=== PATIENT | female | born 1960 | race Caucasian/White ===

== ENCOUNTER → 2016-04-01 | Outpatient (CLI) | payer BC ==
[~2016-04-01] MED LIST: CONRAY-43 43% 50ML VIAL (Q9960) As Ordered ONE; LIDOCAINE 1% MDV 20ML VIAL As Ordered ONE; methylPREDNISolone SUSP 40 MG/ML (DEPO-medrol) VIAL (J1030) As Ordered ONE
--- NOTE | 2016-04-01 18:13 | REP ---
RIGHT HIP INJECTION: The procedure was performed under the direct supervision of Dr. Miles. The risks and benefits of the procedure were explained to the patient and informed consent was obtained. The right femoral neck was localized using fluoroscopic guidance. The skin was prepped and draped in a sterile fashion. 1% Lidocaine was used as a local anesthetic. Using fluoroscopic guidance a 22-gauge spinal needle was inserted and advanced to the femoral neck. The patient has a prior history of allergy to IV contrast therefore contrast was not used. 5 mL of a solution containing 3 mL of 1% Lidocaine and 2 mL of Depo-Medrol 40 mg was injected. The needle was then removed. The patient tolerated the procedure well and there were no immediate complications. 3 second of fluoroscopic time was utilized for this procedure. Reviewed by PLACIDO Ramirez 04/04/2016 05:09 PEdited and Signed by Parth Miles MD 04/04/2016 05:12 P
== END ==
LOC: M RADPRO 11:05
PROVIDERS: ATTEND Physician Assistant Surgical
DX: M25.551 Pain in right hip (principal); Z91.040 Latex allergy status
CPT/HCPCS: 20610; 77002; J1030; Q9960

== ENCOUNTER → 2016-04-21 | Outpatient (CLI) | payer BC ==
[~2016-04-21] MED LIST changes: -LIDOCAINE 1% MDV 20ML VIAL As Ordered ONE; -methylPREDNISolone SUSP 40 MG/ML (DEPO-medrol) VIAL (J1030) As Ordered ONE
--- NOTE | 2016-04-21 09:54 | REP ---
MR arthrogram right hip: History: Right hip pain. Question labral tear. Injury in 2014 and again in February 2016. Comparison studies: No comparison radiographs. Technique: Precontrast imaging includes coronal T1 and T2-weighted scans of both hips. Postcontrast small field of view high resolution axial, coronal and sagittal images are acquired in T1 and T2-weighted scans with fat saturation. MR arthrographic findings: Preinjection MR imaging shows that cortical and medullary bone signal intensity is normal in the proximal femurs bilaterally. There is no evidence of avascular necrosis. The visualized bony pelvic ring is intact. There is no evidence of significant hip joint effusion on either side. No juxta-articular bursal or other fluid collections are seen. Post injection MR imaging of the right hip with smaller field of view high resolution parameters shows good filling and enhancement of the right hip articulation. No loose body is seen. Ligamentum teres is intact. There is gadolinium enhancement under the anterior superior most edge of the cartilaginous glenoid labrum consistent with a subtle tear. The remainder of the labrum appears intact. Head/neck junction morphology is normal. Femoral head is smooth and rounded. No articular cartilage disruption is appreciated. Impression: Findings consistent with a subtle nondisplaced tear in the anterior superior edge of the acetabular labral cartilage. Signed by Parth Miles MD 04/21/2016 12:23 P
--- NOTE | 2016-04-21 16:47 | REP ---
RIGHT HIP ARTHROGRAM: The procedure was performed under the direct supervision of Dr. Miles. The benefits and risks including, but not limited to pain, infection, bleeding, and anaphylaxis were explained to the patient and informed consent was obtained. The right femoral neck was localized using fluoroscopic guidance. The skin was prepped and draped in a sterile fashion. 1% lidocaine was used as a local anesthetic. Using fluoroscopic guidance a 22-gauge spinal needle was inserted and advanced to the femoral neck. The patient has a prior history of Iodinated contrast allergy, therefore, contrast was not used. 11 mL of a solution containing 20 mL of sterile saline and 0.15 mL of ProHance was injected into the joint space. The needle was removed and the patient was taken to MRI for postprocedural imaging. The patient tolerated the procedure well and there were no immediate complications. 2 seconds of fluoroscopy time was utilized for this procedure. Reviewed by PLACIDO Ramirez 04/22/2016 03:29 PEdited and Signed by Parth Miles MD 04/22/2016 04:25 P
== END ==
LOC: M RADPRO 06:59
PROVIDERS: ATTEND Physician Assistant Surgical
DX: M24.151 Other articular cartilage disorders, right hip (principal); M25.551 Pain in right hip
CPT/HCPCS: 27093; 73723; 77002; A9576

== ENCOUNTER 2019-08-29 09:05 | Inpatient (IN) | payer BC, OTHER, SELFPAY ==
[~2019-08-29] VITALS: Ht 160 cm; Wt 58.7 kg
[2019-08-29] VITALS (11 sets, daily range): BP systolic 93–162; BP diastolic 56–74
[2019-08-29] MEDS: VITAMIN D 1,000 INTERNATIONAL UNITS TABLET PO SCH (09:00)
[~2019-08-29 09:05] MED LIST changes: -CONRAY-43 43% 50ML VIAL (Q9960) As Ordered ONE; +OMEPRAZOLE 20 MG CAP PO SCH; +POTASSIUM CHLORIDE 10 MEQ SR TABLET PO SCH
[2019-08-29] MEDS ORDERED: ALBUTEROL SULFATE 2.5 MG/0.5 ML INH NEB SOLN NEB PRN (12:00)
--- NOTE | 2019-08-29 12:07 | HPEPDOC ---
[facility] Medical History & Physical Date of Admission Aug 29, 2019 Date of Service: Aug 29, 2019 Attending Physician: Neida Boyle MD History and Physical CHIEF COMPLAINT: SOB, pericardial effusion HISTORY OF PRESENT ILLNESS: Patient is a 59-year-old female past history of fibromyalgia, abdominal adhesions with history of small bowel obstruction, history of Graves' disease status post radiation, GERD, hypothyroidism, connective tissue disease, carpal tunnel disease who presented to [facility] ICU after being transferred from [facility] for further treatment of pericardial effusion. As per the patient, prior to being admitted to the hospital she was just transferred from, she states her s all and so he 65. Ymtoms started one week 08/20/19 with chest pain in the AM, woke up from sleep. Chest pain was located on the left side/center of chest, squeezing, constant, 10/10 pain. Took ASA, tums but did not improve. Associated symptoms at that time were shortness of breath, nausea. Patient went to the ER at that time, trops were neg, ECG was wnl. CT at that time was done which was unremarkable and she was sent home from the ER only with levaquin for sinus infection with bronchitis. She said she felt better for three days but then developed increased weakness, fever of 101.3 at home. She called ER again and they prescribed azithromycin and albuterol inhaler. She stated that following Friday 08/25 she felt worse with fevers, weakness, nausea and went to the ER again. She was admitted for bilateral pneumonia on new CT scan. CT chest was repeated on 08/28/19 and found new pericardial effusion. Patient states that her shortness of breath has improved since her admission at [facility]. Weakness has improved. She is no longer nauseous, has no chest pain. She also complains of diarrhea of loose stools, small amount, nonbloody, 3x/day, started on 08/28/19. She feels it had started after her antibiotics were started her prior hospital stay. Denies sick contacts that she knows of, no recent travel, palpitations, coughing. Today she was sent to our ICU due to pericardial effusion, continued fevers (102.2). In the ICU patient was 90% on 15 L NRB, she was AAOx3. Labs were reviewed from transfer facility but needed to be repeated. Repeat CT chest without contrast showed b/l consolidations, moderate b/l pleural effusions, moderate pericardial effusion measuring 19 mm width. Thoracic surgery was consulted and patient went for pericardial window where 150 cc pericardial fluid was drained, opaque in color. Path from pericardium was sent, pericardial fluid sent for cx. Pleural tube placed. On window, her heart was adherent to pericardium. Thoracic surgery was concerned for viral pericarditis as cause. She was started on colchicine and currently post-operative procedure. Extubation is being attempted. PAST MEDICAL HISTORY: 1. Bilateral community acquired pneumonia/? HCAP since recent admission and worsening symptoms 2. pericardial effusion 3. Tobacco use 4. Fibromyalgia 5. Hypothyroidism 6. Abdominal adhesions 7. Hx of small bowel obstructions 8. GERD 9. Devine's esophagus 10 Grave's disease s/p radioactive therapy 11. Carpal tunnel disease PAST SURGICAL HISTORY: 1. Total hysterectomy SOCIAL HISTORY: Smoker 1 PPD 42 years, cigarettes. Social alcohol use, denies illicit drug use. Lives with significant other in local area. HCP- Preston Cunningham, nephew. Full code. FAMILY HISTORY: Father: AAA, at 65 Mother: Emphysema, at 82 y/o HOME MEDICATIONS: Please see below. PHYSICAL EXAMINATION: CONSTITUTIONAL: Sitting up in bed, mild respiratory distress, AAO x 3 EYES: PERRLA, EOM intact HENT, MOUTH: Normocephalic, atraumatic, moist mucous membranes, nonrebreather in place NECK: SUPPLE, no JVD, no lymphadenopathy, no carotid bruit CV: Regular rate and rhythm, S1S2 normal, no murmurs/rubs/gallops RESPIRATORY: Tachypnea, decreased breath sounds bilaterally , no rales/rhonchi/wheezes GI: BS positive in 4 quadrants, soft, nontender, nondistended, no rebound or guarding, no organomegaly : Deferred MUSCULOSKELETAL: Normal ROM. No cyanosis, clubbing, swelling, joint deformity, extremity edema INTEGUMENTARY: Intact, no rashes, no lesions, no erythema NEUROLOGIC: Cranial Nerves II-XII are intact, no focal deficits PSYCHIATRIC: Mood and affect are normal LABORATORY DATA: Please see below IMAGING: CT chest: 1. Bilateral consolidations and patchy air space disease along with presumed reactive adenopathy. 2. Moderate bilateral pleural effusions along with moderate pericardial effusion measuring 19 mm maximal width. 3. Differential diagnosis includes pneumonia and changes related to cardiomyopathy. ASSESSMENT: 59-year-old female admitted to ICU for acute hypoxic respiratory failure secondary to bilateral pneumonia, pericardial effusion status post pericardial window. PLAN: 1. Acute on chronic hypoxic respiratory failure likely multifactorial to viral pericarditis, ? CHF, bilateral pneumonia (community vs. HCAP). Not on home O2, tobacco use history but not on home O2. Please see below or treatment of individual issues. 2. Bilateral pneumonia, community vs. HCA with sepsis. Currently 15 L NRB. RR and WBC elevated. LA neg, worsening SOB. Difficult to say if patient didn't pick something up during recent hospital stay. Starting on Levofloxacin, Vancomycin and cefepime. MRSA ordered. F/u prior hospital's microbiology results (requesting BCx, sputum cx,UA) but also repeating BCx, sputum cx here. Acapella Q2 hrs while awake, duoneb ATC, albuterol PRN. . Pulmonary consulted. 3. Pericardial effusion likely 2/2 viral pericarditis. S/p pericardial window, 150 cc fluid drained. Pleural tube in place, monitor closely. F/u all culture and fluid GS, BCx. Started on colchicine. Thoracic surgery following. 4. Elevated BNP, r/o CHF. Bilateral pleural effusions on CT, elevated BNP of 1231, trop neg. No prior cardiac history. F/u echocardiogram. Consider adding lasix, BB when patient is seen to be stable after extubation. 5. Transaminitis possibly 2/2 to congestive hepatopathy vs. medication induced. F/u AM CMP, avoid hepatotoxic medications. 6. Hypothyroidism. F/u TSH. C/w home med. 7. Fibromyalgia. Stable. C/w home medications. 8. GERD/hx of Devine's esophagus. PPI. 9. DVT px. Enoxaparin daily. DISPOSITION: If patient cannot be extubated successfully, can transition all necessary meds to IV form. Pulmonary and thoracic surgery following closely. TOTAL CRITICAL CARE TIME SPENT ON PATIENT: >70 mins Home Medications Scheduled Cholecalciferol (Vitamin D3) (Vitamin D3) 1,000 Unit Tablet, 2,000 UNITS PO DAILY Duloxetine Hcl (Duloxetine HCl) 20 Mg Capsule.dr, 20 MG PO BID Esomeprazole Magnesium (Esomeprazole Magnesium Dr) 40 Mg Capsule.dr, 40 MG PO DAILY Estrogens, Conjugated (Premarin) 0.9 Mg Tablet, 0.9 MG PO DAILY Levothyroxine Sodium (Levothyroxine Sodium) 112 Mcg Tablet, 112 MCG PO DAILY Meropenem (Meropenem) 1 Gm Vial, 1 GM IV ASDIRECTED STARTED AT [facility] Methylprednisolone (Solu-Medrol 125 mg Vial) 125 Mg/2 Ml Vial, 125 MG INJ ASDIRECTED RECEIVED AT [facility] Multivitamins (Thera M Plus Tablet) 1 Each Tablet, 1 TAB PO DAILY Potassium Chloride (Potassium Chloride) 10 Meq Tablet.er, 10 MEQ PO DAILY Pregabalin (Pregabalin) 75 Mg Capsule, 75 MG PO BID Vitamin B Complex (Vitamin B Complex) 1 Each Tablet, 1 TAB PO DAILY Scheduled PRN Acetaminophen (Acetaminophen) 325 Mg Tablet, 975 MG PO QID PRN for PAIN / FEVER Albuterol Sulfate (Albuterol Sulfate Hfa) 8.5 Gm Hfa.aer.ad, 2 PUFFS INH QID PRN for SHORTNESS OF BREATH Ipratropium/Albuterol Sulfate (Iprat-Albut 0.5-3(2.5) mg/3 ml) 3 Ml Ampul.neb, 3 ML INH QID PRN for SHORTNESS OF BREATH Lidocaine (Lidocaine) 5% Adh..patch, 3 PATCH TOP DAILY PRN for PAIN RIGHT HIP, FRONT RIGHT LEG Nitroglycerin (Nitroglycerin) 0.4 Mg Tab.subl, 0.4 MG SL NITRO PRN for CHEST PAIN Allergies Coded Allergies: Iodinated Contrast Media (Verified Allergy, Severe, CONVULSIONS, 08/29/19) latex (Verified Allergy, Severe, SKIN IRRITATION, DIFFICULTY BREATHING, 08/29/19) naproxen (Verified Allergy, Severe, HIVES/ANAPHYLAXIS, 08/29/19) Penicillins (Verified Allergy, Intermediate, HIVES AND FEVER, 08/29/19) SEAFOOD (Verified Allergy, Unknown, 08/29/19) TAPE (Verified Allergy, Unknown, 08/29/19) bee venom protein (honey bee) (Verified Allergy, Unknown, 08/29/19) A-FIB/CHADSVASC A-FIB History Current/History of A-Fib/PAF?: No Current PO Anticoag Therapy: No Age/Risk Factor Scoring CHADSVASC: CHADSVASC Response (Comments) Value Age Risk Factor Age < 65 years old 0 Gender Risk Factor Female 1 Hx of CHF No 0 Hx of HTN No 0 Hx of Stroke/TIA/or VTE No 0 Hx of Diabetes No 0 Hx of Vascular Disease No 0 Total 1 Treatment Treatment ordered: Other (enoxaparin) Other anticoagulant ordered: enoxaparin Neida Boyle MD Aug 29, 2019 12:07
[2019-08-29] MEDS ORDERED: PREM0.9T PO (12:32)
[2019-08-29] MEDS ORDERED: LEVO112T2 PO (12:32)
[2019-08-29] MEDS ORDERED: NITR0.4S14 SL (12:32)
[2019-08-29] MEDS ORDERED: IPRA0.00 INH (12:32)
[2019-08-29] MEDS ORDERED: DULO1CAP4 PO (12:32)
[2019-08-29] MEDS ORDERED: PREG75CA2 PO (12:32)
[2019-08-29] MEDS ORDERED: ESOM40CA35 PO (12:32)
[2019-08-29] MEDS ORDERED: ALBU8.5H INH (12:32)
[2019-08-29] MEDS ORDERED: POTA1TAB23 PO (12:32)
[2019-08-29] MEDS ORDERED: LIDO1PAD TOP (12:32)
[2019-08-29] MEDS ORDERED: VITMTA PO (12:35)
[2019-08-29] MEDS ORDERED: VITAD1000T PO (12:35)
[2019-08-29] MEDS ORDERED: EQL50TAB2 PO (12:35)
[2019-08-29] MEDS ORDERED: METH125VL INJ (13:01)
[2019-08-29] MEDS ORDERED: MERO1VIA3 IV (13:01)
[2019-08-29] MEDS ORDERED: ACET1TAB55 PO (13:01)
[2019-08-29] MEDS ORDERED: LIDOCAINE 5% (LIDODERM) PATCH TOP PRN (13:15)
[2019-08-29] MEDS ORDERED: flumazeniL 0.5 MG/5 ML VIAL As Ordered ONE (13:55)
[2019-08-29] MEDS ORDERED: MIDAZOLAM INJ 2MG/2ML VIAL (J2250 PER 1MG) As Ordered ONE ×4 (13:55→15:05)
[2019-08-29] MEDS ORDERED: LIDOCAINE 1% MDV 20ML VIAL As Ordered ONE (13:56)
[2019-08-29] MEDS ORDERED: methylPREDNISolone INJ 125 MG/2 ML VIAL (J2930) IV SCH (14:00)
[2019-08-29] MEDS ORDERED: HEPARIN SOD (PORCINE) 5000UNITS/ML VIAL (J1644 PER 1000UNITS) SQ SCH (14:00)
--- NOTE | 2019-08-29 14:12 | REP ---
Clinical: Pneumonia like symptoms. Technique: Axial noncontrast images from the thoracic inlet to the upper abdomen with coronal and sagittal re-formations. Findings: Moderate perihilar consolidations with air bronchograms extend into the left lower lobe, right lower lobe, right middle lobe and lingula along with patchy scattered bilateral alveolar infiltrates involving the upper lobes as well as right middle and bilateral lower lobes. Moderate pleural effusions and moderate pericardial effusion which measures roughly 19 mm maximal width are also identified along with presumed reactive mediastinal and hilar adenopathy. No pneumothorax. Tracheobronchial tree is relatively patent. Osseous structures are intact without obvious focal abnormality. Impression: 1. Bilateral consolidations and patchy air space disease along with presumed reactive adenopathy. 2. Moderate bilateral pleural effusions along with moderate pericardial effusion measuring 19 mm maximal width. 3. Differential diagnosis includes pneumonia and changes related to cardiomyopathy. Electronically Signed by Joni Langley MD 08/29/2019 02:04 P
[2019-08-29] MEDS ORDERED: NS 1,000 ML IV ONE (14:15)
[2019-08-29 14:22] LABS: HEMATOCRIT 35.1 % (36.0-47.0); HEMOGLOBIN 11.8 g/dl (12.0-15.5); MEAN CORPUSCULAR HEMOGLOBIN 30.2 pg (27.0-33.0); MEAN CORPUSCULAR HGB CONC 33.6 g/dl (32.0-36.5); MEAN CORPUSCULAR VOLUME 89.8 fl (80.0-96.0); PLATELET COUNT, AUTOMATED 338 10^3/uL (150-450); RED BLOOD COUNT 3.91 10^6/uL (4.00-5.40)
[2019-08-29 14:32] LABS: INR 1.08; PROTHROMBIN TIME 13.7 SECONDS (11.8-14.0)
[2019-08-29 14:33] LABS: PARTIAL THROMBOPLASTIN TIME 33.8 SECONDS (25.0-38.4)
[2019-08-29] MEDS ORDERED: fentaNYL 250 MCG/5 ML INJECTION (J3010) As Ordered ONE (14:35)
[2019-08-29] MEDS ORDERED: LIDOCAINE 2% 100MG/5ML SDV (FOR ANES.) As Ordered ONE ×2 (14:36→14:55)
[2019-08-29] MEDS ORDERED: BUPIVACAINE HCL 0.5% 10ML VIAL As Ordered ONE (14:36)
[2019-08-29] MEDS ORDERED: propofoL 200 MG/20 ML VIAL As Ordered ONE (14:36)
[2019-08-29] MEDS ORDERED: ROCURONIUM BROMIDE 50 MG/5 ML VIAL As Ordered ONE ×2 (14:36→15:45)
[2019-08-29] MEDS ORDERED: BUPIVACAINE LIPOSOME/PF 1.3% 20ML VIAL (13.3MG/ML)(EXPAREL)(C9290 PER1MG) As Ordered ONE (14:36)
[2019-08-29] MEDS ORDERED: KETAMINE HCL 200 MG/20 ML VIAL As Ordered ONE (14:40)
[2019-08-29] MEDS ORDERED: ONDANSETRON 4MG/2ML VIAL As Ordered ONE (14:41)
[2019-08-29] MEDS ORDERED: dexameTHASONE 4 MG/ML 1ML VIAL (J1100 PER 1MG) As Ordered ONE (14:41)
[2019-08-29 14:49] LABS: ALBUMIN 2.9 GM/DL (3.2-5.2); ALT/SGPT 134 U/L (12-78); BILIRUBIN,TOTAL 0.3 MG/DL (0.2-1.0); BLOOD UREA NITROGEN 10 MG/DL (7-18); CALCIUM LEVEL 8.4 MG/DL (8.8-10.2); CARBON DIOXIDE LEVEL 25 MEQ/L (21-32); CHLORIDE LEVEL 105 MEQ/L (98-107); CREATININE FOR GFR 0.53 MG/DL (0.55-1.30); GLOMERULAR FILTRATION RATE > 60.0 (>45); GLUCOSE, FASTING 129 MG/DL (70-100); NT-PRO BNP 1231 PG/ML (<125); POTASSIUM SERUM 3.7 MEQ/L (3.5-5.1); SODIUM LEVEL 139 MEQ/L (136-145); TOTAL PROTEIN 6.9 GM/DL (6.4-8.2); TROPONIN I < 0.02 NG/ML (< 0.10)
[2019-08-29] MEDS ORDERED: VANCOMYCIN 1000MG/20ML VIAL As Ordered ONE (14:51)
[2019-08-29] MEDS ORDERED: MUPIROCIN 2% OINT 22 GM TUBE As Ordered ONE (14:51)
[2019-08-29] MEDS ORDERED: HYDROmorphone HCL 2 MG/ML 1ML VIAL (J1170) As Ordered ONE (15:25)
[2019-08-29] MEDS ORDERED: SUGAMMADEX SODIUM 500 MG/5 ML VIAL (BRIDION) As Ordered ONE (15:44)
--- NOTE | 2019-08-29 15:45 | CR ---
DATE OF CONSULTATION: 08/29/2019 The patient is seen at the request of Dr. Gillette and the hospitalist service for shortness of breath and a pericardial effusion. HISTORY OF PRESENT ILLNESS: The patient is a 59-year-old white female whose story starts approximately 9 days ago. At that time, she went to bed at night feeling well and then about 5:30 in the morning awoke with sudden shortness of breath and crushing pressure type chest pain. She presented herself to the [facility], who did a rule out myocardial infarction workup, which is all negative. They thought that she had a sinus infection and placed her on Levaquin. She felt better for 3 days and then started to become short of breath. The shortness of breath has continued to get worse and worse until she was admitted 2 days ago at [facility]. She continued to have shortness of breath such that she could not lay flat. Her chest pain continues and is relieved by sitting up. It is located in the middle of her chest. Notably, she feels that she can hear bubble wrap in the middle of her chest. She had a fever of 101.3 a few days prior to admission at [facility]. There was no rigor. She has maintained her weight. She has not had a cough, nor has she had sputum production. A chest CT was obtained at [facility] last night, which showed her to have a pericardial effusion and she was therefore transferred down here. PAST MEDICAL HISTORY: 1. Hypothyroidism, secondary to radioactive thyroid ablation, secondary to prior hyperthyroidism. 2. Fibromyalgia. 3. Gastroesophageal reflux disease (GERD). 4. History of small bowel obstructions. PAST SURGICAL HISTORY: She has had multiple abdominal surgeries for lysis of adhesions. She also has had a hysterectomy, tonsillectomy, and a cholecystectomy in the remote past. She has had rotator cuff repairs. ALLERGIES: CONTRAST MEDIA, PENICILLIN, SEAFOOD, LATEX, and NAPROXEN. MEDICATIONS AT HOME: - albuterol two puffs four times a day as needed, shortness of breath - duloxetine 20 mg twice a day - esomeprazole 40 mg every day - Premarin 0.9 mg every day - ipratropium albuterol neb 3 mL four times a day as needed, shortness of breath - Synthroid 112 mcg every day - meropenem (started at [facility]) - methylprednisolone (started at [facility]) - nitroglycerin (started at [facility]) - potassium 10 mg every day - pregabalin 75 mg by mouth twice a day - vitamin B one tablet every day HABITS: Smokes one pack of cigarettes per day since the age of 17. Rarely imbibes alcohol. There are no illicit drugs. 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 All her tuberculosis (TB) tests have been negative. TRAVEL HISTORY: She has traveled to [facility], [place], [place], and [facility].. No travel to the [facility]. EXPOSURES: She has three cats at home. No dogs or birds. FAMILY HISTORY: Not pertinent to acute situation. REVIEW OF SYSTEMS: Constitutional: See history of present illness (HPI). Eyes: Without diplopia. Without amaurosis fugax or prior jaundice. Does wear reading glasses. Nose: Only has occasional epistaxis secondary to the drying effects of oxygen these last few days. Mouth: Has her own teeth. Respiratory: See HPI. Cardiac: See HPI. Without intermittent claudication. She has noted peripheral edema these past 24 hours. No prior history of myocardial infarction. Gastrointestinal (GI): She has had occasional nausea in the last few days. No vomiting. No diarrhea, constipation, melena, hematochezia. No hematemesis. Denies abdominal pain. Genitourinary (): Without dysuria, hematuria, or prior history of renal stones. Endocrine: Without diabetes. With the above thyroid disease. Neurologic: Without paresthesias, paralysis, or prior seizures. Psychiatric: Depression being treated. PHYSICAL EXAMINATION: Well-developed, well-nourished white female in no moderate distress with shortness of breath, having difficulty lying down. Vital Signs: Temperature is 97.4, pulse of 86 in a sinus rhythm, respiratory rate of 26 with the use of her neck accessory muscles. She is 98% saturated on 15 liters nonbreather and her blood pressure is 126/65. Eyes: Pupils equal, round, and reactive. Sclerae nonicteric. Extraocular motor intact. Nose: Without deformity. Mouth: Shows her mucous membranes to be pink and moist. Lips and commissures without lesions. Her teeth are in good repair. Head: Is normocephalic. Neck: Is supple. There is no jugular venous distention. No subcutaneous emphysema. Lungs: Show normal vesicular sounds on either side. I hear no wheezes, rhonchi, or rales. Percussion note is full to the diaphragm. Cardiac: Exam shows distant heart sounds. I do not hear a pericardial rub. Without murmurs or clicks. S1 and S2 are normal. Abdomen: Soft, nontender. Bowel sounds are positive. There is no hepatomegaly. No costovertebral angle (CVA) tenderness. Extremities: Show 1+ pretibial edema. No calf tenderness. No differential swelling of the upper extremities. Skin: Is warm, dry, but has mottling on the knees. Neurologic: Shows II-XII intact along with gross motor and gross sensation intact. Gait is not tested. Psychiatric: Shows her to be awake and alert, oriented times three with appropriate mood and affect, and conversational. Her white count is 14.0 with hemoglobin and hematocrit of 11.8 and 35.1, with a platelet count of 338. Chemistries are still pending as are her coagulation functions. She is COVID negative. Her chest CT done just now shows a concentric pericardial effusion with sparse distribution anteriorly, increased distribution posteriorly. She has bilateral pleural effusions with bilateral lung compression. Her echocardiogram shows the same with regard to pericardial effusion. Inferior vena cava (IVC) does not change with inspiration and is noncompressible. IMPRESSION: 1. Pericardial tamponade. 2. Possible viral pericarditis. 3. Gastroesophageal reflux disease. 4. Fibromyalgia. 5. Prior tobacco use. 6. History of small bowel obstructions, status post multiple operations for abdominal adhesions. PLAN/DISCUSSION: It looks as though she is going into tamponade. I do not have enough room to do a percutaneous paracentesis and therefore, we will take her to operating room to do a pericardial window, at which time, we will take a piece of pericardium and sample the pericardial fluid. I will drain the right pleural effusion. Although, I suspect that once the pericardial effusion is taken care of pleural effusion will resolve of their own. I do not think that her bilateral lower lobe lung compression represents infiltrate but rather compression.
[2019-08-29] MEDS ORDERED: IPRATROPIUM 0.5MG/ALBUTEROL 2.5MG INH SOL UD 3ML (DUONEB) NEB SCH (16:00)
[2019-08-29] MEDS ORDERED: KCL 20MEQ IN D5/NS 1000ML 1,000 ML IV SCH (16:25)
[2019-08-29] MEDS ORDERED: ONDANSETRON 4MG/2ML VIAL IV PRN ×2 (16:30→18:45)
[2019-08-29] MEDS ORDERED: PERCOCET 5MG/325MG TAB PO PRN ×2 (16:30→18:45)
[2019-08-29] MEDS ORDERED: BISACODYL 10 MG SUPP PR PRN (16:30)
[2019-08-29] MEDS ORDERED: NORCO, ANEXSIA 5/325MG TABLET (HYDROcodone/ACETAMINOPHEN) PO PRN (16:30)
[2019-08-29] MEDS ORDERED: LEVALBUTEROL 1.25 MG/0.5 ML CONCENTRATE NEB NEB PRN (16:30)
[2019-08-29] MEDS ORDERED: FUROSEMIDE 40MG/4ML VIAL (J1940) As Ordered ONE (16:49)
[2019-08-29] MEDS ORDERED: FUROSEMIDE 40MG/4ML VIAL (J1940) IV ONE (17:00)
[2019-08-29] MEDS: COLCHICINE 0.6 MG TAB PO SCH (17:10)
[2019-08-29] MEDS ORDERED: DIGOXIN INJ 0.5 MG/2 ML AMP (J1160) As Ordered ONE (17:36)
[2019-08-29 17:38] LABS: ABG BASE EXCESS -0.7 (-2.0-2.0); ABG HCO3 24.6 MEQ/L (22.0-26.0); ABG O2 SATURATION 87.7 % (95.0-99.0); ABG PARTIAL PRESSURE CO2 43.1 mmHg (35.0-45.0); ABG PARTIAL PRESSURE O2 56.8 mmHg (75.0-100.0); ABG STANDARD HCO3 23.7 MEQ/L (22.0-26.0); ABG pH (ARTERIAL) 7.375 UNITS (7.350-7.450)
[2019-08-29] MEDS ORDERED: DIGOXIN INJ 0.5 MG/2 ML AMP (J1160) IV ONE (18:00)
[2019-08-29 18:27] LABS: PH BODY FLUID 7.683 UNITS (NOT ESTABLISHED); SOURCE, BODY FLUID pH PLEURAL
[2019-08-29 18:31] LABS: SOURCE, BODY FLUID PLEURAL
[2019-08-29 18:31] LABS: BASO % 0.1 % (0.0-1.0); HEMATOCRIT 35.5 % (36.0-47.0); HEMOGLOBIN 12.2 g/dl (12.0-15.5); LYMPH # 0.9 10^3/uL (1.5-5.0); LYMPH % 6.3 % (24.0-44.0); MEAN CORPUSCULAR HEMOGLOBIN 31.2 pg (27.0-33.0); MEAN CORPUSCULAR HGB CONC 34.4 g/dl (32.0-36.5); MEAN CORPUSCULAR VOLUME 90.8 fl (80.0-96.0); MONO # 0.7 10^3/uL (0.0-0.8); NEUTROPHILS # 12.9 10^3/uL (1.5-8.5); PLATELET COUNT, AUTOMATED 335 10^3/uL (150-450); RED BLOOD COUNT 3.91 10^6/uL (4.00-5.40); WHITE BLOOD COUNT 14.7 10^3/uL (4.0-10.0)
[2019-08-29 18:32] LABS: APPEARANCE, BODY FLUID CLOUDY (CLEAR); PLEURAL FL COLOR AMBER (COLORLESS)
[2019-08-29] MEDS ORDERED: KCL 20MEQ IN D5/0.9%NACL 1000 ML As Ordered ONE (18:32)
[2019-08-29 18:33] LABS: APPEARANCE, BODY FLUID TURBID (CLEAR); SOURCE, BODY FLUID PERICARDIAL; SOURCE, BODY FLUID pH PERICARDIAL
[2019-08-29 18:34] LABS: PH BODY FLUID > 7.800 UNITS (NOT ESTABLISHED)
[2019-08-29 18:35] LABS: SPEC. GRAVITY BODY FLUIDS 1.034 (NOT ESTABLISHED)
--- NOTE | 2019-08-29 18:35 | RO ---
DATE OF PROCEDURE: 08/29/2019 PREPROCEDURE DIAGNOSIS: Pericardial effusion, pericardial tamponade. POSTPROCEDURE DIAGNOSIS: Pericardial effusion, pericardial tamponade. PROCEDURE: Pericardial window, distal sternectomy and xiphoidectomy. SURGEON: Blair Prakash MD MOLD MAKER HELPER: ANESTHESIA: FINDINGS: The heart was diffusely adherent to the pericardium. I was able to carefully dissect a tunnel into the posterior pericardium where I placed a chest tube. The heart was drained of 175 mL of cloudy fluid. The pleura was drained of 150 mL, but I suspect that there is more and that was also drained with a chest tube. A piece of pericardium was taken and sent for pathological examination. Fluid was sent for the requisite chemistries, hematologies, cytologies, and bacteriologies. Both pleural and pericardial fluid were sent separately. DESCRIPTION OF PROCEDURE: The patient was brought to the operating room where an arterial line was placed. She had an [id number] mm paradox. She was, therefore, prepped and draped prior to induction. She was then induced, and an endotracheal tube was placed. She tolerated induction well. A midline subxiphoid incision was made and linea alba found and divided in its midline. Bifid xiphoid was removed as was a portion of the distal sternum so as to be able to place the Rultract retractor. A fairly large sternal vein was encountered, which was eventually controlled by use of electrocautery. The sternum was elevated, and the pericardium was exposed. A small incision was made in the pericardium and pleural fluid was collected for specimens. Pericardial incision was carefully extended as the heart was adherent beneath it. By both careful sharp and blunt dissection, the section could be placed into the posterior pericardium. I did not dissect the anterior pericardium as it was diffusely adherent to the underlying myocardium and epicardium. The pleura was found and a further piece of pericardium was removed to create a window. Two chest tubes were placed, one in the pericardial well, one in the pleura, both right angle #24 chest tubes. The incisions were closed with running #0 Vicryl suture for the linea alba, running #3-0 Vicryl suture for the subcutaneous tissue, running #3-0 Monocryl subcuticular suture for the skin. The patient tolerated the procedure well and left the operating room in satisfactory condition for the recovery room.
[2019-08-29] MEDS ORDERED: METOCLOPRAMIDE INJ 10MG/2ML VIAL (J2765 PER 1) IV PRN (18:45)
[2019-08-29] MEDS ORDERED: MEPERIDINE INJ 25 MG/ML VIAL (J2175) IV PRN (18:45)
[2019-08-29] MEDS ORDERED: LR 1,000 ML IV SCH (18:45)
[2019-08-29] MEDS ORDERED: fentaNYL 100 MCG/2 ML INJECTION (J3010) IV PRN (18:45)
[2019-08-29 18:56] LABS: LDH, BODY FLUID 570 U/L (NOT ESTABLISHED); SOURCE, BODY FLUID ALBUMIN PERICARDIAL; SOURCE, BODY FLUID GLUCOSE PERICARDIAL; SOURCE, BODY FLUID LDH PERICARDIAL; SOURCE, BODY FLUID TOT PROTEIN PERICARDIAL; TOTAL PROTEIN, BODY FLUID 5.5 G/DL (NOT ESTABLISHED)
[2019-08-29 19:00] LABS: BLOOD UREA NITROGEN 11 MG/DL (7-18); CALCIUM LEVEL 8.2 MG/DL (8.8-10.2); CARBON DIOXIDE LEVEL 27 MEQ/L (21-32); CHLORIDE LEVEL 104 MEQ/L (98-107); CREATININE FOR GFR 0.53 MG/DL (0.55-1.30); GLOMERULAR FILTRATION RATE > 60.0 (>45); GLUCOSE, FASTING 141 MG/DL (70-100); POTASSIUM SERUM 3.8 MEQ/L (3.5-5.1); SODIUM LEVEL 137 MEQ/L (136-145)
[2019-08-29 19:04] LABS: AMYLASE, BODY FLUID 15 U/L (NOT ESTABLISHED); LDH, BODY FLUID 196 U/L (NOT ESTABLISHED); SOURCE, BODY FLUID AMYLASE PLEURAL; SOURCE, BODY FLUID GLUCOSE PLEURAL; SOURCE, BODY FLUID LDH PLEURAL; SOURCE, BODY FLUID TOT PROTEIN PLEURAL; TOTAL PROTEIN, BODY FLUID 3.1 G/DL (NOT ESTABLISHED)
--- NOTE | 2019-08-29 19:45 | ECGEPIP ---
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
--- NOTE | 2019-08-29 19:50 | ECGEPIP ---
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
[2019-08-29] MEDS ORDERED: METOPROLOL SUCC *XL* 25MG TAB (TopROL *XL*) PO ONE (20:00)
[2019-08-29] MEDS: LEVALBUTEROL 1.25 MG/0.5 ML CONCENTRATE NEB NEB SCH (20:00)
--- NOTE | 2019-08-29 20:25 | CCN ---
DATE: 08/29/2019 CRITICAL CARE CONSULT Critical care time was 45 minutes; this excludes all procedures. I was called emergently by Dr. Boyle for the possibility of a patient having pericardial effusion. Echocardiogram had not been yet performed. However, there was a CT scan from yesterday at [facility] showing a fairly large pericardial effusion with some evidence of RV compression on the chest CT. On my arrival to the patient's room, the patient was sitting upright, forward, could not lay back. Her story starts approximately 9 days ago when she woke out of sleep with a pain in her chest and a feeling of increased shortness of breath. 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 She presented to the emergency room, and she stated that they did a workup for acute coronary syndrome, which was unremarkable. They thought she may have had a sinus infection and placed her on a fluoroquinolone. She states she actually felt better for a few days after this, but then progressively became short of breath. She then was admitted 2 days ago to [facility] and shortness of breath continued to worsen. She was having significant orthopnea to the point she could only sit forward to relieve her chest pain and discomfort. She then became more and more hypoxic as her hospitalization continued. She was on antibiotic therapy as there was a thought she likely had pneumonia because of the presence of bilateral pleural effusions on chest imaging. She was febrile to 103 a few days ago. Currently she denies any fever. No rigors. Prior to this, had not noticed any new medical issues. She denies any significant cough, no sputum production. She has had no hemoptysis. She denies any weight loss. At bedside, urgent echocardiogram was performed showing tamponade physiology. I have alerted Dr. Prakash on the way to see this patient, and he was also presented at bedside. It was determined to take her emergently to the operating room (OR) for pericardial window. PAST MEDICAL HISTORY: Significant for hypothyroidism, fibromyalgia, gastroesophageal reflux disease (GERD), recurrent bowel obstruction. Multiple surgical history is outlined in admission history and physical. PHYSICAL EXAM: Temperature was 97.4, pulse is 92, respiratory rate was 26, clear respiratory distress, tachypnea. Blood pressure was 153/66, mean arterial pressure of 95. I did perform peripheral blood cuff monitoring measurement of blood pressure. The systolic blood pressure did not change with respirations. There was no evidence of pulsus paradoxus. Oxygen saturation was 94% on a 15-liter non-rebreather. HEENT: Sclerae are clear and anicteric. Pupils equal and reactive to light. Mucous membranes are pink and moist. There is no central cyanosis. Neck is supple. No tracheal deviation or mass. There is elevated jugular venous distension. Lymph: No cervical, supraclavicular, or axillary adenopathy. Cardiac: Distant heart sounds. No audible murmur, rub or gallop. Sinus tachycardia. Pulmonary: Normal without rales, rhonchi or wheezes. Very minimal dullness to percussion at the bases. No wheeze. No rhonchi. No rales. Minimal prolongation of the expiratory phase. Abdomen: Soft, nontender, nondistended. No hepatosplenomegaly. No masses or hernia. Extremities: Minimal pretibial edema. No calf tenderness. Musculoskeletal: Fairly normal muscle tone for stated age. No evidence of fracture or joint effusion. Skin is warm with no rashes, jaundice or bruising. Minimal livedo reticularis over the knees. Neurologic: No unilateral weakness. No tremor. No asterixis. Voice is clear, non-tangential. Laboratory evaluation shows white blood cell count of 14.0, hemoglobin 11.8, hematocrit of 35.1 with a platelet count of 338. Sodium is 139, potassium is 3.7, chloride is 105, bicarbonate is 25, BUN of 10, creatinine of 0.53, fasting glucose of 129, lactic acid is 1.3, calcium is 8.4, AST is elevated at 65, ALT elevated at 134, alkaline phosphatase at 186. BNP is elevated at 1231. Albumin is at 2.9. INR is 1.08. Chest CT shows mild to moderate bilateral pleural effusions with moderate pericardial effusion. Minimal patchy airspace disease and likely reactive lymphadenopathy. Some ground glass abnormalities in the anterior portions of the lung and atelectasis at the bases.. IMPRESSION: 1. Hypoxia, undetermined etiology with minimal bilateral pleural effusions. May have viral pneumonia in conjunction with a severe pericardial effusion with tamponade features on echocardiogram. Has already been taken to the OR by the thoracic surgeon urgently for pericardial window. Possible decreased cardiac output because of tamponade. Will need to be monitored closely for the exact cause of hypoxia and may require further workup and testing depending on how she appears after surgery. This was signed out to my partner, Dr. Ruggiero. Any further workup right now is limited as she is in the OR. She will need to be reassessed at the time of returning back to the intensive care unit (ICU). Overall, the presentation is that this is likely a viral pericarditis due to the rapid onset in her symptoms. Therefore, will monitor for arrhythmia on telemetry. Avoid QTc prolonging medications. ZONIA
--- NOTE | 2019-08-29 20:28 | REPVR ---
PROCEDURE INFORMATION: Exam: US Duplex Lower Extremity Veins, Bilateral Exam date and time: 08/29/2019 8:17 PM Age: 59 years old Clinical indication: Pain; Leg, lower; Bilateral; Additional info: Le edema, hypoxia TECHNIQUE: Imaging protocol: Real-time duplex ultrasound of the extremities with 2-D malcolm scale, color Doppler flow and spectral waveform analysis with image documentation. Complete exam focused on the bilateral lower extremity veins. COMPARISON: No relevant prior studies available. FINDINGS: Right deep veins: Unremarkable. The common femoral, femoral, proximal profunda femoral and popliteal veins are patent without thrombus. Normal Doppler waveforms. Normal compressibility and/or augmentation response. Right superficial veins: Saphenofemoral junction is patent without thrombus. Left deep veins: Unremarkable. The common femoral, femoral, proximal profunda femoral and popliteal veins are patent without thrombus. Normal Doppler waveforms. Normal compressibility and/or augmentation response. Left superficial veins: Saphenofemoral junction is patent without thrombus. Soft tissues: Unremarkable. IMPRESSION: No DVT of bilateral lower extremity veins. Electronically signed by: Luis A Jacob On 08/29/2019 20:28:28 PM
[2019-08-29] MEDS: **NOTE PATIENT COMMENT** MISC XX SCH (21:00)
[2019-08-29] MEDS: LevoFLOXacin IV 750 MG in IV 1 EA IV SCH (21:07)
[2019-08-29] MEDS: DULoxetine 20 MG CAP (CYMBALTA) PO SCH (21:08)
[2019-08-29] MEDS: DOCUSATE SODIUM 100 MG CAP PO SCH (21:08)
[2019-08-29] MEDS: PREGABALIN 75 MG CAP(LYRICA) PO SCH (21:08)
[2019-08-29] MEDS: ACETAMINOPHEN TAB 650MG DOSE (2X325MG) PO PRN (22:16)
[2019-08-29] MEDS: CEFEPIME HCL 2 GM in D5W MINI-BAG PLUS 50 ML IV SCH (23:34)
--- NOTE | 2019-08-29 23:45 | ECHO ---
DATE OF PROCEDURE: 08/29/2019 DATE OF : 1960 AGE: 59 REFERRING PHYSICIAN: Dr. Boyle. PATIENT LOCATION: Room 3203. REASON FOR THE STUDY: Pericardial effusion. 2D MEASUREMENTS: IVS: 0.8 cm LV: 4.2 cm LVPW: 0.9 cm LA: 2.9 cm Aorta: 2.8 cm IVC: 2.0 cm DOPPLER MEASUREMENTS: Peak velocity across the aortic valve: 1.7 meters per second Peak velocity across the LVOT: 0.9 meters per second Mitral E: 0.89, Mitral A: 0.63 with a ratio of 1.4 2D COMMENTS: 1. Normal left ventricular size, wall thickness, and normal global left ventricular systolic function. The estimated left ventricular systolic ejection fraction is 60-65%. 2. Normal left atrium. Normal right atrium and right ventricle. 3. The atrial septum appeared to be normal without evidence of defect or shunt. 4. Normal aortic root. 5. Moderate pericardial effusion noted without any chamber collapse, but there was a greater than 25% mitral inflow variation with inspiration. The inferior vena cava (IVC) is borderline enlarged. 6. Mildly calcified aortic valve with normal leaflet excursion. Normal mitral valve, tricuspid valve and pulmonic valve. The proximal pulmonary artery branches were not well visualized. 7. The inferior vena cava was dilated, central venous pressure might be elevated. DOPPLER: It detects trace to mild mitral regurgitation and trace tricuspid regurgitation. Abnormal relaxation pattern was noted across the mitral valve annulus consistent with features of grade 2 left ventricular diastolic dysfunction. IMPRESSION: 1. Normal global left ventricular systolic function. There are some features of left ventricular diastolic dysfunction, grade 2. 2. Aortic valve sclerosis without stenosis or aortic regurgitation. 3. Trace to mild mitral regurgitation. Left atrium is normal in size. 4. Trace pericardial effusion. 5. Moderate pericardial effusion noted with some echocardiographic manifestation of early tamponade. It seems that the patient was taken to the operating room (OR) earlier in the day. 6. Bilateral pleural effusion also noted.
[2019-08-30] VITALS (7 sets, daily range): BP systolic 106–118; BP diastolic 56–79
[2019-08-30] MEDS ORDERED: VANCOMYCIN HCL 750 MG, VIAL MATE ADAPTER 1 EACH in D5W 250 ML IV ONE (01:00)
[2019-08-30] MEDS ORDERED: FUROSEMIDE 20MG/2ML VIAL (J1940) IV ONE (01:30)
[2019-08-30] MEDS: LEVALBUTEROL 1.25 MG/0.5 ML CONCENTRATE NEB NEB SCH ×4 (01:38→19:35)
[2019-08-30] MEDS ORDERED: VANCOMYCIN HCL 500 MG in D5W MINI-BAG PLUS 100 ML IV ONE (02:00)
[2019-08-30] MEDS ORDERED: DIGOXIN INJ 0.5 MG/2 ML AMP (J1160) IV ONE ×2 (02:00→10:00)
[2019-08-30 05:00] LABS: BASO % 0.1 % (0.0-1.0); HEMATOCRIT 37.5 % (36.0-47.0); HEMOGLOBIN 12.8 g/dl (12.0-15.5); LYMPH # 1.5 10^3/uL (1.5-5.0); LYMPH % 8.5 % (24.0-44.0); MEAN CORPUSCULAR HEMOGLOBIN 30.9 pg (27.0-33.0); MEAN CORPUSCULAR HGB CONC 34.1 g/dl (32.0-36.5); MEAN CORPUSCULAR VOLUME 90.6 fl (80.0-96.0); MONO # 1.2 10^3/uL (0.0-0.8); MONO % 7.2 % (0.0-5.0); NEUTROPHILS # 14.5 10^3/uL (1.5-8.5); NEUTROPHILS % 83.7 % (36.0-66.0); PLATELET COUNT, AUTOMATED 387 10^3/uL (150-450); RED BLOOD COUNT 4.14 10^6/uL (4.00-5.40); WHITE BLOOD COUNT 17.3 10^3/uL (4.0-10.0)
[2019-08-30 05:31] LABS: BLOOD UREA NITROGEN 13 MG/DL (7-18); CALCIUM LEVEL 8.2 MG/DL (8.8-10.2); CARBON DIOXIDE LEVEL 31 MEQ/L (21-32); CHLORIDE LEVEL 98 MEQ/L (98-107); CREATININE FOR GFR 0.73 MG/DL (0.55-1.30); GLOMERULAR FILTRATION RATE > 60.0 (>45); GLUCOSE, FASTING 120 MG/DL (70-100); POTASSIUM SERUM 3.9 MEQ/L (3.5-5.1); SODIUM LEVEL 139 MEQ/L (136-145); THYROID STIMULATING HORMONE 0.687 uIU/ML (0.358-3.740)
[2019-08-30 06:04] LABS: ABG BASE EXCESS 4.3 (-2.0-2.0); ABG O2 SATURATION 95.8 % (95.0-99.0); ABG PARTIAL PRESSURE CO2 38.5 mmHg (35.0-45.0); ABG PARTIAL PRESSURE O2 76.4 mmHg (75.0-100.0); ABG STANDARD HCO3 28.3 MEQ/L (22.0-26.0); ABG TOTAL CO2 29.2 MEQ/L (23.0-31.0)
[2019-08-30] MEDS: LEVOTHYROXINE 112MCG TABLET (0.112MG) PO SCH (06:31)
--- NOTE | 2019-08-30 06:32 | REP ---
Clinical: Pleural and pericardial effusions. Technique: Single portable upright view of the chest. Findings: A right-sided chest tube and suspected pericardial drainage catheter are identified. A moderate left pleural effusion is suggested and a small residual layering right pleural effusion cannot be excluded. Perihilar, bibasilar, and right upper lobe opacities suggest elements of atelectasis/infiltrate. No pneumothorax. Skeletal structures intact. Impression: 1. Right chest tube and pericardial drainage catheter. 2. Moderate left pleural effusion, small residual right pleural effusion, and multifocal infiltrate/atelectasis noted. Electronically Signed by Joni Langley MD 08/30/2019 06:24 A
[2019-08-30 07:45] LABS: LDH LACTATE DEHYDROGENASE 399 U/L (84-246)
[2019-08-30] MEDS ORDERED: MORPHINE 2 MG/ML 1ML VIAL (J2270) As Ordered ONE (08:40)
[2019-08-30] MEDS ORDERED: FUROSEMIDE 40MG/4ML VIAL (J1940) IV ONE (08:45)
[2019-08-30] MEDS ORDERED: MORPHINE 2 MG/ML 1ML VIAL (J2270) IV ONE (08:45)
[2019-08-30 08:56] LABS: ALBUMIN 2.8 GM/DL (3.2-5.2); ALT/SGPT 134 U/L (12-78); BILIRUBIN,TOTAL 0.3 MG/DL (0.2-1.0); RHEUMATOID FACTOR QUANT < 10.0 IU/ML (<15.0); TOTAL PROTEIN 6.8 GM/DL (6.4-8.2)
[2019-08-30] MEDS: PERCOCET 5MG/325MG TAB PO PRN ×2 (09:31→16:27)
--- NOTE | 2019-08-30 09:54 | REP ---
CHEST X-RAY: Two views. HISTORY: Pericardial and pleural effusion. COMPARISON CHEST X-RAY: August 29 2027 4:53 p.m. FINDINGS: The right chest tube remains in place projecting along the plane of the major fissure terminating posteriorly. There is a small right apical pneumothorax visible on today's radiograph. There is blunting of the right lateral and both posterior pleural angles. The left lateral pleural angle is also blunted consistent with left effusion. Monitoring electrodes are seen. A pericardial catheter is noted along the base of the heart unchanged in position. There are surgical clips in the upper abdomen. IMPRESSION: Small bilateral pleural effusions. A small right-sided pneumothorax with right chest and pericardial drainage catheters in place. Electronically Signed by Parth Miles MD 08/30/2019 12:47 P
[2019-08-30] MEDS: VANCOMYCIN HCL 1,000 MG, VIAL MATE ADAPTER 1 EACH in D5W 250 ML IV SCH ×2 (10:23→20:54)
[2019-08-30] MEDS: VITAMIN D 1,000 INTERNATIONAL UNITS TABLET PO SCH (10:26)
[2019-08-30] MEDS: PANTOPRAZOLE 40MG TAB (PROTONIX) PO SCH (10:27)
[2019-08-30] MEDS: MULTIVITAMINS/MINERALS THERAP 1 TAB PO SCH (10:27)
[2019-08-30] MEDS: DULoxetine 20 MG CAP (CYMBALTA) PO SCH ×2 (10:27→20:53)
[2019-08-30] MEDS: POTASSIUM CHLORIDE 10 MEQ SR TABLET PO SCH ×2 (10:28→18:11)
[2019-08-30] MEDS: COLCHICINE 0.6 MG TAB PO SCH (10:28)
[2019-08-30] MEDS: DOCUSATE SODIUM 100 MG CAP PO SCH ×2 (10:28→20:53)
[2019-08-30] MEDS: METOPROLOL SUCC *XL* 25MG TAB (TopROL *XL*) PO SCH ×2 (10:29→20:56)
[2019-08-30] MEDS: PREGABALIN 75 MG CAP(LYRICA) PO SCH ×2 (10:30→20:53)
[2019-08-30] MEDS: MOM 30ML SUSPENSION UDC PO SCH (10:30)
[2019-08-30] MEDS: ENOXAPARIN 40MG/0.4ML SYRINGE (J1650 PER 10MG) SC SCH (10:31)
[2019-08-30] MEDS: NICOTINE 14 MG/24 HR TRANSDERMAL TD SCH (10:31)
--- NOTE | 2019-08-30 11:14 | IPN ---
DATE: 08/30/2019 This is the first postoperative day for Mrs. Gallagher. She had a stable night of surgery. She is still hypoxic but is now down to 10 just nasal cannula from 15 nasal cannula. The pain was well-controlled until she went to x-ray today and when she lifted her arms over her head, she experienced excruciating right scapular pain. This is being treated with morphine with good relief. Her vital signs show a maximum temperature (T-max) of 98.5 with a heart rate that ranges between 112 and 104 now in atrial fibrillation. Her heart rate was up to 140s, just after surgery. Blood pressure is ranging between 109/56 to 93/56. She is 96% saturated now on 10 liters nasal cannula. Her respiratory rate is at 14-24 without the use of accessory muscles. Her intake and output over the past 24 hours has been recorded as 3030 in and 2848 out for a positivity of 182 mL. In the last 10 hours, she is now negative 1200 mL. She has put out a total of 133 mL from her pleural tube and 86 mL from her pericardial tube. She weighs 61 kg today compared to 62.2 kg yesterday. On physical examination she has decreased breath sounds at the left base. Percussion note is dull at the left base. She has normal vesicular sounds on the right side. Percussion note is full to the diaphragm on the right side. Cardiac exam shows a pericardial friction rub heard best at the left lower sternal border. I cannot feel her point of maximum impulse (PMI). S1 and S2 are normal. She has an irregular rate and rhythm. Abdomen is soft but tympanitic. Bowel sounds are positive. I cannot appreciate hepatomegaly. There is costovertebral angle (CVA) tenderness on the right most likely secondary to her pain in her scapula. Her right scapula is also tender to palpation. Extremities show 1+ pretibial edema. No differential swelling of the upper extremities. Skin is now warm, dry and perfused and unlike yesterday, there is no mottling of her knees. Neck is supple. There is no jugular venous distention. No subcutaneous emphysema. Trachea is midline. Mouth shows her mucous membranes to be pink and moist. Lips and commissures are without lesions. There is no thrush. Eyes show her pupils to be equal and reactive. Extraocular movements intact. Sclerae nonicteric. Neurologic shows II-XII intact along with gross motor and gross sensation intact. Gait is not tested. Psychiatric showed her to be awake, alert and oriented times three with appropriate and affect and conversational. Her white count today is 17.3 up from 14.7 yesterday postoperatively. Hemoglobin and hematocrit 12.8 and 37.5 increased from 12.2 and 35.5 secondary to hemoconcentration. Platelet count is 387 and differential shows 83% neutrophils, 8% lymphocytes, 7% monocytes. There are no immature forms or toxic granulations. Chemistries showed normal electrolytes with BUN and creatinine of 13 and 0.73, glucose 120 and a calcium of 8.2. Liver functions are still elevated same as yesterday at 65 and 134. I am assigning this to liver congestion secondary to a paracardial tamponade. Albumin 2.8 with a corresponding calcium of 8.2. TSH 0.687 within normal limits. Rheumatoid factor today is less than 10. Her pericardial fluid has come back with a pH greater than 7.8, glucose 116 and LDH 570 with a serum LDH of 399. Pleural fluid has come back with a pH of 7.6 with a glucose of 129 and a LDH of 196. The pericardial cell count shows 155 white cells, 47 of which are mononuclear lymphocytes and 52 are polymorphonuclear (PMN's). Pericardial fluid looks like an exudative process with equal amounts of lymphocytes and PMNs. This is more consistent with a viral pericarditis rather than bacterial particularly with the pH being greater than 7.8. Pleural fluid looks to be transudative. IMPRESSION: 1. Pericardial tamponade. 2. Pericarditis, unknown cause at this time. 3. Atrial fibrillation secondary to pericarditis and pericardial tube. 4. Fibromyalgia. 5. Hypothyroidism secondary to radioactive thyroid ablation in the remote past. 6. Gastroesophageal reflux disease. 7. 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 8. Current tobacco abuse. 9. Left pleural effusion. PLAN AND DISCUSSION: I will continue both her chest tube and pericardial tubes on suction today. I will eventually obtain an echocardiogram to make sure that all the pericardial fluid is evacuated prior to removing her pericardial tube. The source of her pericarditis remains unknown at this point in time. I do not think that it is bacterial, although it could be viral. Her rheumatoid factor is negative and I am waiting for the antinuclear antibody screen for lupus. Pathology is pending to look for malignancy, although I do not see any overt evidence of malignancy elsewhere that would be metastatic. She is not in renal failure and she is euthyroid so I do not think there is a metabolic cause for her pericardial effusion. She has a left ventricular diastolic dysfunction which could be manifested with increased right heart pressures, although that remains to be seen on a subsequent echo now that her pericardial effusion is drained. I do not think she has bacterial pneumonia. I am hoping with diuresis her left pleural effusion will resolve itself. I will give her an additional Lasix today. If she does not spontaneously convert to sinus rhythm by tomorrow, I will ask cardiology to address her atrial fibrillation. Dr. Ruggiero has already given her a dose of Toprol for rate control. I have digitalized her and her last digitalizing dose is this morning.
[2019-08-30] MEDS: CEFEPIME HCL 2 GM in D5W MINI-BAG PLUS 50 ML IV SCH ×2 (12:09→22:23)
--- NOTE | 2019-08-30 12:28 | CCN ---
DATE: 08/30/2019 The patient was seen and examined this morning during bedside rounds. Yesterday, the patient was taken to the operating room (OR) emergently for a pericardial window placement for a pericardial effusion with suspicion of tamponade. In the OR, the patient was noted to have the anterior pericardium diffusely adherent to the underlying myocardium and epicardium. She had a pericardial drain placed as well as a right-sided chest tube placed as well. Postoperatively, the patient reported significant improvement in her chest pain as well as in her shortness of breath. She was noted to be in new onset atrial fibrillation postoperatively with rapid ventricular response. She was given digoxin loading, however continued to be tachycardic with heart rate occasionally into the 130s. She was therefore started on metoprolol for beta-amanda with improvement in her heart rate. The patient was also given a dose of IV Lasix postoperatively and did have good urine output. Overnight, however, she was not noted to be significantly net negative and so was given additional IV dose of Lasix 40 mg. This morning the patient has had some increased urine output and some slight improvement in her lower extremity edema. She does continue to report that her breathing is improving and has not had any significant chest pain. She did have an episode after going to x-ray and after she had lifted her arms up where she had sudden pain in the right side of her chest, which improved with pain medication. She otherwise has not had any fevers or chills overnight. Denies any abdominal pain. No nausea or vomiting. Her lower extremity edema is improving but still present. PHYSICAL EXAMINATION: Temperature 98.4, pulse 104, respirations 20, blood pressure 109/56, oxygen 98% on 10 liters nasal cannula. Ins 3 liters, out 2.8 liters, overnight, additional urine output of 1.8 liters with a net negative now 1.2 liters. General: Patient is sitting in the bed, awake and alert, does not appear to be in any acute respiratory distress. Is speaking in complete sentences comfortably. HEENT: Normocephalic, atraumatic. Pupils reactive to light bilaterally. Neck is supple. Trachea is in midline. There is no palpable cervical adenopathy. Cardiovascular: Irregularly irregular with a normal S1 and S2. Unable to appreciate any murmurs. There is a midsternal surgical pericardial window incision and a pericardial drain in place. There is a right-sided chest tube in place as well, both of which are to suction. Pulmonary: Diminished breath sounds at the bases on the left more than the right with crackles bilaterally in the bases. No wheezing or rhonchi noted. Abdomen is soft and nontender, nondistended. No palpable mass. Extremities: There is bilateral pitting lower extremity edema +1, slightly improved from yesterday. LABS: WBC 17.3, hemoglobin 12.8, platelets 387. Chemistry is 139, potassium 3.9, chloride is 98, bicarbonate 31, BUN 13, creatinine 0.73, glucose is 120, calcium is 8.2. ABG: pH 7.450, pCO2 of 38.5, pO2 of 76.4. TSH is within normal limits. Fluid studies showed exudative pericardial fluid with an elevated LDH and total protein. There was also WBCs noted with a mix of lymphocytes and neutrophils. MICROBIOLOGY: Pericardial fluid cultures are still pending. Pathology is also pending. IMAGING: Lower extremity duplex yesterday showed no evidence of deep venous thrombosis (DVT) in bilateral extremities. Chest x-ray this morning shows a right chest tube in place projecting along the plane of the major fissure turning posteriorly. There is a small right apical pneumothorax as well. There is a small right pleural effusion with blunting of the right pleural angles. There is left-sided pleural effusion slightly more than on the right. There is a right-sided pericardial drain in place. There is improvement in the opacities in the upper lobes noted on the previous x-ray. ASSESSMENT AND PLAN: Ms. Gallagher is a 59-year-old female with a past medical history of hypothyroidism secondary to ablation for hyperthyroidism, fibromyalgia, gastroesophageal reflux disease (GERD), previous history of small bowel obstructions, who presented with complaints of worsening shortness of breath and chest pain. The patient had initially presented at an outside hospital with complaints of fever as well as with shortness of breath and chest pain. She was thought to have a possible sinus infection or bronchitis, although she had denied any significant cough, and was started on antibiotics. She initially had some improvement, however then had noticed progressive shortness of breath and chest pain as well as orthopnea. She was admitted here with acute hypoxemic respiratory failure and with imaging showing evidence of bilateral pleural effusions with lower lobe atelectasis/consolidation as well as with some more patchy alveolar infiltrates in the upper lobes as well as in the right middle lobe. She also had a moderate pericardial effusion and mild mediastinal adenopathy. The patient was taken to the OR yesterday emergently for placement of a pericardial window with pericardial drain and a right-sided chest tube for her pericardial effusion with concern for pericardial tamponade. Postprocedure, she did have improvement in her shortness of breath as well as in her chest pain. During the procedure it was noted to be very inflammatory with adhesions. She was also found to go into new onset atrial fibrillation postoperatively likely due to her pericarditis as well as with her pericardial window procedure. Acute hypoxemic respiratory failure likely secondary to pulmonary edema with bilateral pleural effusions. The patient also had leukocytosis and some patchy scattered alveolar infiltrates in the lungs bilaterally which may be possible infectious etiology. Given her symptoms, suspect a viral process including potential viral pericarditis, although bacterial pericarditis is still possible. The patient was also found to have a pericardial tamponade secondary to her pericardial effusion from acute pericarditis. - Appreciate cardiothoracic surgery consult recommendations. Her pericardial drain and her right chest tube will be continued to suction. She initially did not have much output from her right-sided chest tube, however this morning after some movement she has had increased output. She does continue to have evidence of pleural effusion on her x-ray this morning as well as a significant effusion on the left side. - The patient was given Lasix IV postprocedure as well as an additional IV dose overnight. She is net negative but continues to require significant oxygen supplementation and does continue have evidence of edema and pleural effusions. Will continue with the diuresis and will give an additional 40 mg IV Lasix today and monitor her ins and outs. - Will followup results of the pericardial fluid studies, including the cultures as well as with pathology. Potential differential for her pericarditis and effusion include infectious such as a viral pericarditis. Bacterial pericarditis is less likely. Other potential etiologies are inflammatory connective tissue disease such as a systemic lupus erythematosus (SLE). She does have an BRAD and rheumatoid factor which is pending. Malignancy is also in the differential and her pericardial cytology is also pending. - Will continue with broad-spectrum antibiotics for now given concern for potential pneumonia. The patient was also recently seen in an outside hospital and so can continue with vancomycin and cefepime. She is also on Levaquin for atypicals. Would followup results of MRSA screen and cultures to de-escalate antibiotics. Suggest can likely de-escalate Levaquin to doxycycline or azithromycin for atypical coverage as there is less suspicion for a Pseudomonas infection. - Continue with pain control as per CT surgery. - Continue with daily chest x-rays with her chest tube placements and pericardial drain placement. New onset atrial fibrillation likely in the setting of her acute pericarditis as well as her recent pericardial procedure. - The patient was given digoxin loading and is continued on daily digoxin. Would check a level. - Continue with metoprolol for rate control, which she has been tolerating and with improvement in her heart rate. - Would need discussion about potential anticoagulation for atrial fibrillation at some point. With her recent pericardial window however, would hold off anticoagulation at this time unless needed. The patient did have a lower extremity duplex done, which did not show any evidence of DVT. If she continues to have hypoxia despite diuresis may need CT angio for further evaluation at that time. Transaminitis may be secondary to viral etiology as well as possible congestive hepatopathy. - Will continue to trend liver function tests (LFTs). Current active smoker, no history of chronic obstructive pulmonary disease (COPD) in the past. Can continue with nebulizers as needed and continue with nicotine patch for smoking cessation. Hypothyroidism. Continue with home medications as per primary care. The patient has poor peripheral access. She will need IV medications during her stay and will place a PICC line for her vascular access. DVT prophylaxis, Lovenox. Gastrointestinal (GI) prophylaxis, proton pump inhibitor (PPI). CODE STATUS: FULL CODE. Total critical care time spent not including procedures approximately 50 minutes. MTDD
--- NOTE | 2019-08-30 14:09 | IPNPDOC ---
Date Seen The patient was seen on 08/30/19. Progress Note SUBJECTIVE: Post-op day 1 pericardial window with pericardial drain and right-side pleural tube placement for pericardial effusion, pericardial tamponade. Both drains draining well, currently saturating well on 10 L NC. Chest pain still present but improved. Currently in atrial fib, rate controlled- new onset over past 24 hours. Going for PICC todayShe denies n/v/d, fevers or chills. OBJECTIVE: VITAL SIGNS: Please see below PHYSICAL EXAMINATION: CONSTITUTIONAL: No acute distress, resting comfortably, AAO x 3 EYES: PERRLA, EOM intact HENT, MOUTH: Normocephalic, atraumatic, moist mucous membranes, NC in place NECK: SUPPLE, no JVD, no lymphadenopathy, no carotid bruit CV: irregularly irregular rhythm, controlled rate. S1S2 normal, no murmurs/rubs/gallops CHEST: pericardial window incision appears clean midsternal, slightly erythema. 2 tubes from incision to bedside drains to suction, fluid looks serosanguinous. RESPIRATORY: Decreased breath sounds bilaterally L>R with crackles bilaterally also. No rhonchi/wheezes GI: BS positive in 4 quadrants, soft, nontender, nondistended, no rebound or guarding, no organomegaly : Carrillo catheter in place MUSCULOSKELETAL: Normal ROM. No cyanosis, clubbing, swelling, joint deformity, + 1-2 pitting extremity edema INTEGUMENTARY: Intact, no rashes, no lesions, no erythema NEUROLOGIC: Cranial Nerves II-XII are intact, no focal deficits PSYCHIATRIC: Mood and affect are normal CURRENT MEDICATIONS: Please see below LABORATORY DATA: Please see below. Rheumatoid factor < 10, BRAD pending MICROBIOLOGY: Pericardial fluid pH >7.8, glucose 116 and LDH 570. Serum LDH of 399. Pleural fluid pH 7.6, glucose of 129 and a LDH of 196. Pericardial cell count: 155 white cells, 47 mononuclear lymphocytes, 52 are PMN IMAGING: CXR 08/30/19: Small bilateral pleural effusions. A small right-sided pneumothorax with right chest and pericardial drainage catheters in place. CT chest 08/29/19: 1. Bilateral consolidations and patchy air space disease along with presumed reactive adenopathy. 2. Moderate bilateral pleural effusions along with moderate pericardial effusion measuring 19 mm maximal width. 3. Differential diagnosis includes pneumonia and changes related to cardiomyopathy. Echocardiogram: 1. Normal global left ventricular systolic function. There are some features of left ventricular diastolic dysfunction, grade 2. EF 60-65% 2. Aortic valve sclerosis without stenosis or aortic regurgitation. 3. Trace to mild mitral regurgitation. Left atrium is normal in size. 4. Trace pericardial effusion. 5. Moderate pericardial effusion noted with some echocardiographic manifestation of early tamponade. It seems that the patient was taken to the operating room (OR) earlier in the day. 6. Bilateral pleural effusion also noted. ASSESSMENT: 59-year-old female admitted to ICU for acute hypoxic respiratory failure secondary to bilateral pneumonia, pericardial effusion status post pericardial window. PLAN: 1. Acute on chronic hypoxic respiratory failure likely multifactorial to pericardial tamponade, pericarditis (bacterial vs. viral- see fluid studies a choco), ? CHF with pleural effusions, bilateral pneumonia (community vs. HCAP). Not on home O2. Please see below or treatment of individual issues. 2. Pericardial effusion with pericardial tamponade s/p pericardial window. Echo above. At this time, awaiting many cultures, pathology. Bacterial vs. viral cause is unclear but appears to be more viral than bacterial. Pleural and pericardial tubes in place, monitor closely with drainage to bedside cannisters. C/w colchicine abx. Will need repeat echocardiogram at some point. Thoracic surgery following. 3. Bilateral pneumonia, community vs. HCA with sepsis. Currently 10 L NRB. WBC slightly increased ; however, after procedure this can be reactive. C/w Levofloxacin, and cefepime. MRSA neg, COVID neg. F/u prior hospital's microbiology results (requesting BCx, sputum cx,UA) but repeated BCx, sputum cx here. Acapella Q2 hrs while awake, duoneb ATC, albuterol PRN. Pulmonary following. 4. Atrial fibrillation, rate controlled and new-onset post-pericardial window. Echo above. C/w digoxin, BB. Tele. 5. Right-side pneumothorax. Stable on 10 L NC. 6. Diastolic CHF, EF 60-65%. Bilateral pleural effusions on CT, elevated BNP, trop neg. No prior cardiac history. F/u echocardiogram. Intermittently diuresing, BB. 6. Transaminitis possibly 2/2 to congestive hepatopathy. CMP similar to 08/29/19. F/u AM CMP, avoid hepatotoxic medications. 7. Hypothyroidism. TSH wnl. C/w home med. 8. Fibromyalgia. Stable. C/w home medications. 9. Tobacco use. Nicotine patch. 10. GERD/hx of Devine's esophagus. PPI. 11. DVT px. Enoxaparin daily. DISPOSITION: Currently in ICU. Pulmonary and thoracic surgery following closely. VS, I&O, 24H, Fishbone Vital Signs/I&O Vital Signs Date Time Temp Pulse Resp B/P (MAP) Pulse Ox O2 Delivery O2 Flow Rate FiO2 08/30/19 12:09 99.0 89 22 108/59 (75) 91 High Flow Cannula 8.0 I&O- Last 24 Hours up to 6 AM 08/30/19 06:00 Intake Total 3655 ml Output Total 4594 ml Balance -939 ml Laboratory Data 24H LABS Laboratory Tests 2 08/29/19 14:09: Nucleated Red Blood Cells % (auto) 0.0, Anion Gap 9, Glomerular Filtration Rate > 60.0, Lactic Acid Level 1.3, Calcium Level 8.4L, Total Bilirubin 0.3, Aspartate Amino Transf (AST/SGOT) 65H, Alanine Aminotransferase (ALT/SGPT) 134H, Alkaline Phosphatase 186H, Troponin I < 0.02, VT-Nef-Z-Type Natriuretic Peptide 1231H, Total Protein 6.9, Albumin 2.9L, Albumin/Globulin Ratio 0.7L 08/29/19 14:10: Prothrombin Time 13.7, Prothromb Time International Ratio 1.08, Activated Partial Thromboplast Time 33.8 08/29/19 14:54: Body Fluid pH 7.683, Body Fluid pH Source PLEURAL, Body Fluid WBC (Auto) 38H, Body Fluid RBC (Auto) 13, Body Fluid Mononuclear Cells % Auto 39.4H, Fluid Polymorphonuclear Cell % Auto 60.6H, Body Fluid Glucose Source PLEURAL, Body Fluid Glucose 129, Body Fluid Protein Source PLEURAL, Body Fluid Total Protein 3.1, Body Fluid LDH Source PLEURAL, Body Fluid Lactate Dehydrogenase 196, Body Fluid Amylase Source PLEURAL, Body Fluid Amylase 15, Pleural Fluid Source PLEURAL, Pleural Fluid Color VANDA, Pleural Fluid Appearance CLOUDY 08/29/19 17:30: Blood Gas Bicarbonate Standard 23.7, Arterial Blood pH 7.375, Arterial Blood Partial Pressure CO2 43.1, Arterial Blood Partial Pressure O2 56.8L, Arterial Blood Total CO2 26.0, Arterial Blood HCO3 24.6, Arterial Blood Base Excess -0.7, Arterial Blood Oxygen Saturation 87.7L 08/29/19 18:19: Immature Granulocyte % (Auto) 0.6, Neutrophils (%) (Auto) 88.0H, Lymphocytes (%) (Auto) 6.3L, Monocytes (%) (Auto) 5.0, Eosinophils (%) (Auto) 0.0, Basophils (%) (Auto) 0.1, Neutrophils # (Auto) 12.9H, Lymphocytes # (Auto) 0.9L, Monocytes # (Auto) 0.7, Eosinophils # (Auto) 0.0, Basophils # (Auto) 0.0, Nucleated Red Blood Cells % (auto) 0.0, Anion Gap 6L, Glomerular Filtration Rate > 60.0, Calcium Level 8.2L 08/30/19 04:21: 08/30/19 04:24: Immature Granulocyte % (Auto) 0.5, Neutrophils (%) (Auto) 83.7H, Lymphocytes (%) (Auto) 8.5L, Monocytes (%) (Auto) 7.2H, Eosinophils (%) (Auto) 0.0, Basophils (%) (Auto) 0.1, Neutrophils # (Auto) 14.5H, Lymphocytes # (Auto) 1.5, Monocytes # (Auto) 1.2H, Eosinophils # (Auto) 0.0, Basophils # (Auto) 0.0, Nucleated Red Blood Cells % (auto) 0.0, Anion Gap 10, Glomerular Filtration Rate > 60.0, Calcium Level 8.2L, Total Bilirubin 0.3, Aspartate Amino Transf (AST/SGOT) 65H, Alanine Aminotransferase (ALT/SGPT) 134H, Alkaline Phosphatase 166H, Lactate Dehydrogenase 399H, Total Protein 6.8, Albumin 2.8L, Albumin/Globulin Ratio 0.7L, Thyroid Stimulating Hormone (TSH) 0.687, Rheumatoid Factor < 10.0 08/30/19 05:52: Blood Gas Bicarbonate Standard 28.3H, Arterial Blood pH 7.480H, Arterial Blood Partial Pressure CO2 38.5, Arterial Blood Partial Pressure O2 76.4, Arterial Blood Total CO2 29.2, Arterial Blood HCO3 28.0H, Arterial Blood Base Excess 4.3H, Arterial Blood Oxygen Saturation 95.8 CBC/BMP Laboratory Tests 08/29/19 14:09 08/29/19 18:19 08/30/19 04:24 Microbiology Microbiology 08/29/19 Blood Culture, Received Pending 08/29/19 Blood Culture, Received Pending 08/29/19 Acid Fast Stain, Received Pending 08/29/19 Mycobacterial Culture, Received Pending 08/29/19 Fungal Smear, Received Pending 08/29/19 Fungal Culture, Received Pending 08/29/19 Acid Fast Stain, Received Pending 08/29/19 Mycobacterial Culture, Received Pending 08/29/19 Fungal Smear, Received Pending 08/29/19 Fungal Culture, Received Pending 08/29/19 Gram Stain - Final, Resulted 08/29/19 Body Fluid Culture, Resulted Pending 08/29/19 Anaerobic Culture, Resulted Pending 08/29/19 Gram Stain - Final, Resulted 08/29/19 Body Fluid Culture, Resulted Pending 08/29/19 Anaerobic Culture, Resulted Pending Current Medications Current Medications Medications (Trade) Dose Ordered Sig/Shelby Route PRN Reason Start Time Stop Time Status Last Admin Dose Admin Acetaminophen (Tylenol Tab) 650 mg Q6HP PRN PO PAIN / FEVER 08/29/19 13:30 08/29/19 22:16 Acetaminophen/ Hydrocodone Bitart ([place], Anexsia 5/325) 1 tab Q3H PRN PO MILD PAIN (PS 1-4) 08/29/19 16:30 Albuterol Sulfate (Proventil Neb) 2.5 mg Q2HP PRN NEB SOB/WHEEZING 08/29/19 12:00 08/29/19 16:40 DC Albuterol/ Ipratropium (Duoneb (Ipr 0.5mg/Alb 2.5mg)) 3 ml RQ4H NEB 08/29/19 16:00 08/29/19 16:40 DC Bisacodyl (Dulcolax Suppository) 10 mg Q4HP PRN [place] CONSTIPATION 08/29/19 16:30 Cefepime HCl 2 gm/ Dextrose 50 ml @ 100 mls/hr Q12H IV 08/29/19 23:00 08/30/19 12:09 Colchicine (Colcrys) 0.6 mg DAILY PO 08/29/19 17:00 08/30/19 10:28 Digoxin (Lanoxin) 0.25 mg DAILY PO 08/31/19 09:00 Docusate Sodium (Colace) 100 mg BID PO 08/29/19 21:00 08/30/19 10:28 Duloxetine HCl (Cymbalta) 20 mg BID PO 08/29/19 21:00 08/30/19 10:27 Enoxaparin Sodium (Lovenox) 40 mg DAILY SC 08/30/19 09:00 08/30/19 10:31 Fentanyl Citrate (Sublimaze) 25 mcg Q5MP PRN IV PAIN LEVEL 5-10 08/29/19 18:45 08/29/19 19:45 DC Heparin Sodium (Porcine) (Heparin) 5,000 units Q8H SQ 08/29/19 14:00 08/29/19 17:26 DC Home Med (Med Rec Complete!) ASDIRECTED XX 08/29/19 13:15 08/29/19 13:02 DC Lactated Ringer's 1,000 ml @ 100 mls/hr Q10H IV 08/29/19 18:45 08/29/19 19:45 DC Levalbuterol HCl (Xopenex Neb) 1.25 mg Q2HP PRN NEB WHEEZING 08/29/19 16:30 Levalbuterol HCl (Xopenex Neb) 1.25 mg RQ6H NEB 08/29/19 20:00 08/30/19 13:21 Levofloxacin 750 mg/IV Miscellaneous Supplies 150 ml @ 100 mls/hr Q24H IV 08/29/19 18:00 08/29/19 21:07 Levothyroxine Sodium (Synthroid) 112 mcg DAILY@0600 PO 08/30/19 06:00 08/30/19 06:31 Lidocaine (Lidoderm Patch) 3 patch DAILY PRN TOP PAIN 08/29/19 13:15 Magnesium Hydroxide (Milk Of Magnesia) 30 ml DAILY PO 08/30/19 09:00 08/30/19 10:30 Meperidine HCl (Demerol) 12.5 mg Q5MP PRN IV SHIVERING 08/29/19 18:45 08/29/19 19:45 DC Methylprednisolone (SOLUmedrol) 125 mg Q8H IV 08/29/19 14:00 08/29/19 16:34 DC 08/29/19 13:26 Metoclopramide HCl (REGLAN INJection) 10 mg Q6HP PRN IV NAUSEA OR VOMITING 08/29/19 18:45 08/29/19 19:45 DC Metoprolol Succinate (TopROL XL) 25 mg BID PO 08/30/19 09:00 08/30/19 10:29 Multivitamins (Theragram-M) 1 tab DAILY PO 08/30/19 09:00 08/30/19 10:27 Nicotine (Nicoderm Cq 14mg) 1 patch DAILY TD 08/30/19 09:00 08/30/19 10:31 Non-Formulary Medication ( See Comment Field Below ) REMOVE LIDODERM PATCH DAILY@21 XX 08/29/19 21:00 08/29/19 21:00 Omeprazole (PriLOSEC) 40 mg DAILY PO 08/29/19 09:00 08/29/19 16:42 DC Ondansetron HCl (ZOFRAN INJection) 4 mg Q4HP PRN IV NAUSEA 08/29/19 16:30 Ondansetron HCl (ZOFRAN INJection) 4 mg Q4HP PRN IV NAUSEA OR VOMITING 08/29/19 18:45 08/29/19 19:45 DC Oxycodone/ Acetaminophen (Percocet 5mg/ 325mg Tablet) 1 tab ASDIRECTED PRN PO PAIN LEVEL 1-4 08/29/19 18:45 08/29/19 19:45 DC Oxycodone/ Acetaminophen (Percocet 5mg/ 325mg Tablet) 1 tab Q4H PRN PO MODERATE PAIN (PS 5-7) 08/29/19 16:30 Oxycodone/ Acetaminophen (Percocet 5mg/ 325mg Tablet) 2 tab Q4H PRN PO SEVERE PAIN (PS 8-10) 08/29/19 16:30 08/30/19 09:31 Pantoprazole Sodium (Protonix) 40 mg DAILY PO 08/30/19 09:00 08/30/19 10:27 Potassium Chloride/Dextrose/ Sod Cl 1,000 ml @ 75 mls/hr [id number] IV 08/29/19 16:25 08/29/19 19:49 DC 08/29/19 18:00 Potassium Chloride (Micro-K Extencaps) 10 meq DAILY PO 08/29/19 09:00 08/30/19 08:55 DC Potassium Chloride (Micro-K Extencaps) 20 meq BIDWM PO 08/30/19 08:00 08/30/19 10:28 Pregabalin (Lyrica) 75 mg BID PO 08/29/19 21:00 08/30/19 10:30 Vancomycin HCl 1000 mg/IV Miscellaneous Supplies 1 each/ Dextrose 270 ml @ 270 mls/hr Q12H IV 08/30/19 09:00 08/30/19 10:23 Vitamin D (Vitamin D) 2,000 units DAILY PO 08/29/19 09:00 08/30/19 10:26 Allergies Coded Allergies: Iodinated Contrast Media (Verified Allergy, Severe, CONVULSIONS, 08/29/19) latex (Verified Allergy, Severe, SKIN IRRITATION, DIFFICULTY BREATHING, 08/29/19) naproxen (Verified Allergy, Severe, HIVES/ANAPHYLAXIS, 08/29/19) Penicillins (Verified Allergy, Intermediate, HIVES AND FEVER, 08/29/19) SEAFOOD (Verified Allergy, Unknown, 08/29/19) TAPE (Verified Allergy, Unknown, 08/29/19) bee venom protein (honey bee) (Verified Allergy, Unknown, 08/29/19) Neida Boyle MD Aug 30, 2019 14:09
[2019-08-30] MEDS ORDERED: LIDOCAINE 1% MDV 20ML VIAL As Ordered ONE (16:50)
[2019-08-30] MEDS ORDERED: LIDOCAINE 1% MDV 20ML VIAL XX ONE (17:15)
--- NOTE | 2019-08-30 17:51 | REP ---
Procedure: PICC line insertion with Joel The procedure was performed under the direct supervision of Dr. Miles. The risks and benefits of the procedure were explained to the patient and informed consent was obtained. The procedure was performed in the ICU at the bedside. The right basilic vein was localized using ultrasound guidance. The skin was prepped and draped in a sterile fashion. 2% lidocaine was used as a local anesthetic. Using ultrasound guidance the basilic vein was cannulated and a 0.018 guidewire was inserted. The needle was removed and a 5.5 Pashto dilator and peel-away sheath was inserted over the guide wire. A 5.5 Pashto dual lumen catheter was cut to length of 40 cm. The dilator was removed and the catheter was inserted over the guide wire. The chest x-ray was performed and the image demonstrates the catheter to be a heading cephalad. The catheter was readjusted and another portable chest x-ray was performed. The catheter showed doubled back on itself in the SVC. The catheter was once again readjusted and another portable chest x-ray was performed and the image demonstrates the tip of the catheter to be in the SVC. The peel-away sheath was removed and the catheter was flushed with heparinized saline as per Hospital protocol. The catheter was affixed to the skin and a sterile dressing was applied. The patient tolerated the procedure well and there were no immediate complications. Electronically Signed by PLACIDO Ramirez 08/30/2019 05:27 P Electronically Signed by Parth iMles MD 08/30/2019 05:40 P
[2019-08-30] MEDS: SODIUM CHLORIDE 0.9% INJ 10 ML SYR IV SCH (18:00)
[2019-08-30] MEDS: LevoFLOXacin IV 750 MG in IV 1 EA IV SCH (18:10)
[2019-08-30] MEDS: **NOTE PATIENT COMMENT** MISC XX SCH (20:58)
[2019-08-31] VITALS (7 sets, daily range): BP systolic 91–135; BP diastolic 53–71
[2019-08-31] MEDS: LEVALBUTEROL 1.25 MG/0.5 ML CONCENTRATE NEB NEB SCH ×4 (01:01→20:05)
[2019-08-31] MEDS: SODIUM CHLORIDE 0.9% INJ 10 ML SYR IV SCH ×2 (04:24→18:02)
[2019-08-31 04:45] LABS: BASO % 0.1 % (0.0-1.0); EOS % 0.2 % (0.0-3.0); HEMATOCRIT 34.2 % (36.0-47.0); HEMOGLOBIN 11.3 g/dl (12.0-15.5); LYMPH # 3.6 10^3/uL (1.5-5.0); MEAN CORPUSCULAR HEMOGLOBIN 30.1 pg (27.0-33.0); MONO % 8.5 % (0.0-5.0); NEUTROPHILS # 7.4 10^3/uL (1.5-8.5); NEUTROPHILS % 60.6 % (36.0-66.0); PLATELET COUNT, AUTOMATED 357 10^3/uL (150-450); RED BLOOD COUNT 3.76 10^6/uL (4.00-5.40); WHITE BLOOD COUNT 12.1 10^3/uL (4.0-10.0)
[2019-08-31 05:17] LABS: BLOOD UREA NITROGEN 20 MG/DL (7-18); CARBON DIOXIDE LEVEL 32 MEQ/L (21-32); CHLORIDE LEVEL 103 MEQ/L (98-107); CREATININE FOR GFR 0.61 MG/DL (0.55-1.30); GLOMERULAR FILTRATION RATE > 60.0 (>45); GLUCOSE, FASTING 115 MG/DL (70-100); POTASSIUM SERUM 3.5 MEQ/L (3.5-5.1); SODIUM LEVEL 139 MEQ/L (136-145)
[2019-08-31] MEDS: LEVOTHYROXINE 112MCG TABLET (0.112MG) PO SCH (05:40)
[2019-08-31] MEDS: DOCUSATE SODIUM 100 MG CAP PO SCH ×2 (07:09→20:28)
[2019-08-31] MEDS: MOM 30ML SUSPENSION UDC PO SCH (07:09)
[2019-08-31] MEDS: PERCOCET 5MG/325MG TAB PO PRN (07:51)
--- NOTE | 2019-08-31 09:04 | REP ---
Chest x-ray: Two views. History: Pericardial effusion. Pleural effusion. Comparison chest x-ray August 30, 2019. Findings: A right-sided PICC line is seen in place in the expected location of the SVC right atrial junction. There is a tiny sliver of right apical pleural air decreased in size from yesterday's radiograph. There are small bilateral pleural effusions. The right chest and a pericardial drain remain in place. There is oxygen delivery tubing and monitoring electrodes. My mildly prominent heart. Blunting of the pleural angles is seen bilaterally, left more so than right. Electronically Signed by Parth Miles MD 08/31/2019 08:55 A
[2019-08-31] MEDS: VANCOMYCIN HCL 1,000 MG, VIAL MATE ADAPTER 1 EACH in D5W 250 ML IV SCH (10:03)
[2019-08-31] MEDS: NICOTINE 14 MG/24 HR TRANSDERMAL TD SCH (10:04)
[2019-08-31] MEDS: PREGABALIN 75 MG CAP(LYRICA) PO SCH ×2 (10:04→20:28)
[2019-08-31] MEDS: VITAMIN D 1,000 INTERNATIONAL UNITS TABLET PO SCH (10:04)
[2019-08-31] MEDS: ENOXAPARIN 40MG/0.4ML SYRINGE (J1650 PER 10MG) SC SCH (10:04)
[2019-08-31] MEDS: DIGOXIN 0.25 MG TAB PO SCH (10:05)
[2019-08-31] MEDS: PANTOPRAZOLE 40MG TAB (PROTONIX) PO SCH (10:05)
[2019-08-31] MEDS: METOPROLOL SUCC *XL* 25MG TAB (TopROL *XL*) PO SCH (10:05)
[2019-08-31] MEDS: DULoxetine 20 MG CAP (CYMBALTA) PO SCH ×2 (10:05→20:28)
[2019-08-31] MEDS: MULTIVITAMINS/MINERALS THERAP 1 TAB PO SCH (10:05)
[2019-08-31] MEDS: POTASSIUM CHLORIDE 10 MEQ SR TABLET PO SCH ×2 (10:05→18:03)
[2019-08-31] MEDS: COLCHICINE 0.6 MG TAB PO SCH (10:06)
[2019-08-31] MEDS: FUROSEMIDE 40MG/4ML VIAL (J1940) IV SCH ×2 (11:33→18:01)
[2019-08-31] MEDS: CEFEPIME HCL 2 GM in D5W MINI-BAG PLUS 50 ML IV SCH ×2 (11:33→23:19)
--- NOTE | 2019-08-31 11:59 | CCN ---
DATE: 08/31/2019 The patient was seen and examined this morning during bedside rounds. The patient denies any significant chest pain. She does have some discomfort on the right side only when she raises her right arm up. She does continue to report improvement in her breathing. The patient has not had any fevers overnight. She did have good response with the intravenous (IV) Lasix yesterday and has been net negative. PHYSICAL EXAMINATION: Temperature 97.6, pulse 76, respirations 20, blood pressure was 105/56, oxygen saturation 96% on 4 liters nasal cannula. GENERAL: The patient is sitting in the bed. Is awake and alert. Does not appear to be in any acute respiratory distress. Is able to speak in complete sentences. HEENT: Normocephalic, atraumatic. Pupils reactive to light bilaterally. Neck is supple. Trachea is midline. No palpable cervical adenopathy. CARDIOVASCULAR: Irregularly irregular with normal S1, S2. Unable to appreciate any murmurs. There is a midsternal surgical incision for a pericardial window as well a pericardial drain in place. There is a right-sided chest tube in place. PULMONARY: There are diminished breath sounds at the bases on the left more than the right with few crackles at the bases. No wheezing or rhonchi noted. ABDOMEN: Soft, nontender, nondistended. No palpable mass. EXTREMITIES: There is bilateral pitting lower extremity edema, +1. LABORATORY DATA: WBC 12.1, hemoglobin is 11.3, platelets 367. Chemistry: Sodium is 139, potassium is 3.5, chloride is 103, bicarbonate 32, BUN 20, creatinine 0.61, glucose is 115. Rheumatoid factor negative, BRAD pending. IMAGING STUDIES: Chest x-ray this morning shows a right peripherally inserted central catheter (PICC) line in place. There is borderline enlarged heart. There is a right pericardial drain in place as well as a right-sided chest tube. There is a small right apical pneumothorax. There are small bilateral pleural effusions, left greater than right. ASSESSMENT AND PLAN: Ms. Gallagher is a 59-year-old female with a past medical history of hypothyroidism secondary to ablation for hyperthyroidism, fibromyalgia, gastroesophageal reflux disease (GERD), previous history of small bowel obstructions, who presented with complaints of worsening shortness breath and chest pain. The patient was noted on admission to have acute hypoxemic respiratory failure with CT showing bilateral pleural effusions as well as lower lobe atelectasis as consolidation as well as some more patchy alveolar infiltrates in the upper lobes and the right middle lobe. She also had a moderate pericardial effusion with some suspicion for a tamponade on echocardiogram. The patient went to the operating room (OR) emergently for placement of pericardial window and a drain as well as a right-sided chest tube. Post procedure she was noted to be in new-onset atrial fibrillation, likely secondary to her pericarditis and pericardial window procedure. Acute hypoxemic respiratory failure, likely secondary to pulmonary edema with bilateral pleural effusions. The patient also with leukocytosis initially and some patchy scattered alveolar infiltrates in the lung bilaterally, which may be a possible infectious etiology. Given her symptoms, suspect viral process causing a viral pericarditis as well as potential viral pneumonia on her CT. Bacterial pericarditis and bacterial pneumonia is still possible, however. The patient was in pericardial tamponade from her effusion secondary to the acute pericarditis. - The patient is status post pericardial window and a pericardial drain. Appreciate CT surgery recommendations. She has had minimal output from her pericardial drain overnight and suspect she will have removal of her pericardial drain later today. - The patient was given IV Lasix multiple doses yesterday for diuresis and did have good response. She has also had improvement in terms of her oxygen requirements with the diuresis and this morning was weaned down to 2 liters nasal cannula. - The patient does continue to have evidence of small bilateral pleural effusions as well as pitting edema, so will continue with Lasix 40 mg IV twice a day and continue to monitor her intake and output. - Will continue to wean down nasal cannula oxygen supplementation as tolerated to maintain the oxygen saturation above 9% - Will continue to replete electrolytes, particularly potassium. - Will followup results of her pericardial fluid studies. Cultures and pathology results are still pending. The patient did have a rheumatoid factor which was negative, but her antinuclear antibody (BRAD) is still pending, as other potential etiologies for her pericarditis such as inflammatory from connective tissue disease, such as systemic lupus erythematosus (SLE), are still possible. - The patient was on broad-spectrum antibiotics for concern of potential pneumonia. She was also in outside hospital and so has been on antibiotics for healthcare associate pneumonia. The patient's leukocytosis has improved, and she has been afebrile. Would de-escalate her Levaquin, as she is also receiving cefepime and likely does not need double pseudomonas coverage, as a pseudomonas infection is unlikely. Can place her on doxycycline instead, which will cover for atypicals, as well as methicillin-resistant Staphylococcus aureus (MRSA) and discontinue the vancomycin as well. The patient will therefore be on just cefepime and doxycycline and will continue to de-escalate based on her cultures. - Continue her right-sided chest tube to suction. Continue chest tube management as per cardiothoracic surgery with imaging as per cardiothoracic surgery. New-onset atrial fibrillation, likely in the setting of acute pericarditis as well as her pericardial window procedure. - The patient was given digoxin loading and was continued on daily digoxin. She was also started on metoprolol for rate control, which she has been tolerating, and has had improvement in her heart rate. The patient had converted into sinus rhythm. She will need continued monitoring to see if she has persistent paroxysmal atrial fibrillation or if it was just due to this acute incident. The patient is a current active smoker. No previous history of chronic obstructive pulmonary disease (COPD). Can continue with nebulized bronchodilators as needed and with nicotine patch for smoking cessation. Hypothyroidism. Continue home medications as per primary care. - Deep vein thrombosis (DVT) prophylaxis with Lovenox. - Gastrointestinal (GI) prophylaxis with proton pump inhibitor (PPI). CODE STATUS: Full code. Total critical care time spent, not including any procedures was approximately 30 minutes MTDD
[2019-08-31] MEDS ORDERED: SODIUM CHLORIDE NASAL 0.65% SPRAY BTL (OCEAN) PRN (12:45)
--- NOTE | 2019-08-31 13:08 | IPN ---
DATE: 08/31/2019 This is now the second postoperative day for Mrs. Gallagher. Her pain is much better today. She is breathing well and her oxygen saturation continues to improve with decreasing oxygen. Her vital signs show a maximum temperature (T-max) of 98.2 with a heart rate that ranges between 76 and 92 in a sinus rhythm, respiratory rate of 18 to 20 without the use of accessory muscles, who is 91% to 93% saturated on 2 liters nasal cannula and whose blood pressure is ranging between 104/59 to 115/64. Her intake and output over the past 24 hours has been recorded as 1895 in and 3293 out for a negativity of nearly 53402 mL. She has put out 110 mL from the pleural tube and 28 mL from her pericardial tube. She weighs 61.9 kg today compared to 61 yesterday. On physical examination, she inspiratory rales and rhonchi at both bases with decreased breath sounds also at both bases. She has much more decreased breath sounds on the left side than the right side however. There is no wheezing. Cardiac exam does not show any murmurs, clicks or gallops. There is a pericardial scratch, probably secondary to te pericardial tube. S1, S2 are normal. She is now into sinus rhythm. Abdomen is soft and nontender. Bowel sounds are positive. There is no hepatomegaly. No costovertebral angle (CVA) tenderness. Extremities show 1+ pretibial edema bilaterally. There is no differential swelling of the upper extremities. Her skin is warm, dry and perfused, without cyanosis or mottling, including that of the nail beds and knees. Neck is supple. There is no jugular venous distention. No subcutaneous emphysema. Trachea is midline. Mouth shows her mucous membranes to be pink and moist. Lips and commissures are without lesions. There is no thrush. Eyes show her pupils to be equal and reactive. Extraocular movements intact. Sclerae nonicteric. Neurologic shows II-XII intact along with gross motor and gross sensation intact. Gait is not tested. Psychiatric shows her to be awake, alert and oriented times three with appropriate and affect and conversational. Chest x-ray today shows bilateral pleural effusions, more on the right. Cardiac silhouette is almost normalized. There is still some cephalization of vessels. I see no infiltrates per say. Her white count today is 12.1 with hemoglobin and hematocrit of 11.3 and 34.2 respectively. Platelet count is 357 with a differential that shows 60% neutrophils, 30% lymphocytes, 8% monocytes. There are no immature forms and no toxic granulations. Her electrolytes are normal with a BUN and creatinine of 20 and 0.61, glucose of 115 and calcium 8.0. There are no blood gases on her today. Her BRAD is still pending. I discussed her pericardial and pleural fluid findings yesterday. IMPRESSION: 1. Pericardial tamponade relieved with a pericardial window and tube pericardiostomy. 2. Pericarditis, unknown cause at this time. 3. Atrial fibrillation secondary to pericarditis, resolved. 4. Fibromyalgia. 5. Hypothyroidism secondary to radioactive thyroid ablation in the remote past. 6. Gastroesophageal reflux disease. 7. 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 8. Current tobacco abuse. 9. Left pleural effusion. PLAN AND DISCUSSION: I will remove her pericardial tube today. I will continue her pleural tube. Will await pathology. I think we will probably end up calling this bilateral pericarditis by exclusion. This will be bolstered by the history of fever preadmission. We will continue to diurese her and increase her by mouth potassium. Hopefully, the pleural effusion will resolve on its own with more diuresis. She is already on colchicine as an anti-inflammatory. She is allergic to Naproxen and I am loathe to start her on Toradol. I am also loathe to start her on steroids at this point in time.
[2019-08-31 14:08] LABS: ANTINUCLEAR ANTIBODIES DIRECT Negative (Negative)
[2019-08-31] MEDS: ACETAMINOPHEN TAB 650MG DOSE (2X325MG) PO PRN (15:44)
--- NOTE | 2019-08-31 16:21 | IPNPDOC ---
Date Seen The patient was seen on 08/31/19. Progress Note SUBJECTIVE: Post-op day 2. Pericardial drain to be removed today but pleural tube to remain. NSR. Continuing to diurese and currently on 6 L NC. Overall improving. She denies n/v/d, fevers or chills. OBJECTIVE: VITAL SIGNS: Please see below PHYSICAL EXAMINATION: CONSTITUTIONAL: No acute distress, resting comfortably, AAO x 3 in good spirits EYES: PERRLA, EOM intact HENT, MOUTH: Normocephalic, atraumatic, moist mucous membranes, NC in place NECK: SUPPLE, no JVD, no lymphadenopathy, no carotid bruit CV: NSR. S1S2 normal, no murmurs/rubs/gallops CHEST: pericardial window incision appears clean midsternal- healing nicely. 2 tubes from incision to bedside drains to suction. Rales and rhonchi at bases with decreased breath sounds, L>R. No wheezing RESPIRATORY: Decreased breath sounds bilaterally L>R with crackles bilaterally also. No rhonchi/wheezes GI: BS positive in 4 quadrants, soft, nontender, nondistended, no rebound or guarding, no organomegaly : Carrillo catheter in place MUSCULOSKELETAL: Normal ROM. No cyanosis, clubbing, swelling, joint deformity, + 1-2 pitting extremity edema INTEGUMENTARY: Intact, no rashes, no lesions, no erythema NEUROLOGIC: Cranial Nerves II-XII are intact, no focal deficits PSYCHIATRIC: Mood and affect are normal CURRENT MEDICATIONS: Please see below LABORATORY DATA: Please see below. Rheumatoid factor < 10, BRAD neg MICROBIOLOGY/PATH: Pericardial fluid pH >7.8, glucose 116 and LDH 570. Serum LDH of 399. Pleural fluid pH 7.6, glucose of 129 and a LDH of 196. Pericardial cell count: 155 white cells, 47 mononuclear lymphocytes, 52 are PMN pathology pending IMAGING: CXR 08/30: A right-sided PICC line is seen in place in the expected location of the SVC right atrial junction. There is a tiny sliver of right apical pleural air decreased in size from yesterday's radiograph. There are small bilateral pleural effusions. The right chest and a pericardial drain remain in place. There is oxygen delivery tubing and monitoring electrodes. My mildly prominent heart. Blunting of the pleural angles is seen bilaterally, left more so than right. Echocardiogram: 1. Normal global left ventricular systolic function. There are some features of left ventricular diastolic dysfunction, grade 2. EF 60-65% 2. Aortic valve sclerosis without stenosis or aortic regurgitation. 3. Trace to mild mitral regurgitation. Left atrium is normal in size. 4. Trace pericardial effusion. 5. Moderate pericardial effusion noted with some echocardiographic manif estation of early tamponade. It seems that the patient was taken to the operating room (OR) earlier in the day. 6. Bilateral pleural effusion also noted. ASSESSMENT: 59-year-old female admitted to ICU for acute hypoxic respiratory failure secondary to bilateral pneumonia, pericardial effusion post-op day 2 pericardial window and tube pericardiostomy. PLAN: 1. Acute on chronic hypoxic respiratory failure likely multifactorial to pericardial tamponade, pericarditis (likely viral; however, awaiting pathology), CHF with pleural effusions, bilateral pneumonia (community vs. HCAP). Not on h ome O2. Please see below for treatment of individual issues. 2. Pericardial effusion with pericardial tamponade s/p pericardial window. Bacterial vs. viral cause is unclear but leaning more towards viral cause. BRAD neg, RA neg. Pleural and pericardial tubes in place, with pericardial tube being removed today. Echo above. At this time, awaiting cultures (fungal and bacterial), pathology. C/w colchicine, lasix BID, abx. Will need repeat echocardiogram at some point. Thoracic surgery following. 3. Bilateral pneumonia, community vs. HCA with sepsis. Currently 10 L NRB. WBC slightly increased ; however, after procedure this can be reactive. C/w Levofloxacin, and cefepime. MRSA neg, COVID neg. F/u prior hospital's microbiology results (requesting BCx, sputum cx,UA) but repeated BCx, sputum cx here. Acapella Q2 hrs while awake, duoneb ATC, albuterol PRN. Pulmonary following. 4. Atrial fibrillation. Currently NSR; however, unsure if she will go into atrial fib again and this will paroxysmal?. Monitor on tele. Echo above. C/w digoxin, BB. Tele. 5. Right-side pneumothorax. Improved on today's CXR. Currently stable on 6 L NC. 6. Diastolic CHF, EF 60-65%. Bilateral pleural effusions on CT, elevated BNP, trop neg. No prior cardiac history. F/u echocardiogram. Lasix BID, BB. 6. Transaminitis possibly 2/2 to congestive hepatopathy. CMP similar to 08/29/19. F/u AM CMP, avoid hepatotoxic medications, c/w treatment for CHF. 7. Hypothyroidism. TSH wnl. C/w home med. 8. Fibromyalgia. Stable. C/w home medications. 9. Tobacco use. Nicotine patch. 10. GERD/hx of Devine's esophagus. PPI. 11. DVT px. Enoxaparin daily. DISPOSITION: Currently in ICU. Consider PCU step down. Pulmonary and thoracic surgery following closely. VS, I&O, 24H, Fishbone Vital Signs/I&O Vital Signs Date Time Temp Pulse Resp B/P (MAP) Pulse Ox O2 Delivery O2 Flow Rate FiO2 08/31/19 12:24 93 Room Air 08/31/19 12:00 2.0 08/31/19 12:00 98.0 81 16 135/71 (92) I&O- Last 24 Hours up to 6 AM 08/31/19 06:00 Intake Total 1570 ml Output Total 1732 ml Balance -162 ml Laboratory Data 24H LABS Laboratory Tests 2 08/31/19 04:18: Immature Granulocyte % (Auto) 0.6, Neutrophils (%) (Auto) 60.6, Lymphocytes (%) (Auto) 30.0, Monocytes (%) (Auto) 8.5H, Eosinophils (%) (Auto) 0.2, Basophils (%) (Auto) 0.1, Neutrophils # (Auto) 7.4, Lymphocytes # (Auto) 3.6, Monocytes # (Auto) 1.0H, Eosinophils # (Auto) 0.0, Basophils # (Auto) 0.0, Nucleated Red Blood Cells % (auto) 0.0, Anion Gap 4L, Glomerular Filtration Rate > 60.0, Calcium Level 8.0L 08/31/19 08:27: Vancomycin Level Trough 13.5 CBC/BMP Laboratory Tests 08/31/19 04:18 Microbiology Microbiology 08/29/19 Blood Culture - Preliminary, Resulted No growth after 24 hours . All specim... 08/29/19 Blood Culture - Preliminary, Resulted No growth after 24 hours . All specim... 08/29/19 Acid Fast Stain, Received Pending 08/29/19 Mycobacterial Culture, Received Pending 08/29/19 Fungal Smear, Received Pending 08/29/19 Fungal Culture, Received Pending 08/29/19 Acid Fast Stain, Received Pending 08/29/19 Mycobacterial Culture, Received Pending 08/29/19 Fungal Smear, Received Pending 08/29/19 Fungal Culture, Received Pending 08/29/19 Gram Stain - Final, Complete 08/29/19 Body Fluid Culture - Final, Complete 08/29/19 Anaerobic Culture - Final, Complete 08/29/19 Gram Stain - Final, Complete 08/29/19 Body Fluid Culture - Final, Complete 08/29/19 Anaerobic Culture - Final, Complete Current Medications Current Medications Medications (Trade) Dose Ordered Sig/Shelby Route PRN Reason Start Time Stop Time Status Last Admin Dose Admin Acetaminophen (Tylenol Tab) 650 mg Q6HP PRN PO PAIN / FEVER 08/29/19 13:30 08/31/19 15:44 Acetaminophen/ Hydrocodone Bitart ([place], Anexsia 5/325) 1 tab Q3H PRN PO MILD PAIN (PS 1-4) 08/29/19 16:30 08/31/19 01:42 Albuterol Sulfate (Proventil Neb) 2.5 mg Q2HP PRN NEB SOB/WHEEZING 08/29/19 12:00 08/29/19 16:40 DC Albuterol/ Ipratropium (Duoneb (Ipr 0.5mg/Alb 2.5mg)) 3 ml RQ4H NEB 08/29/19 16:00 08/29/19 16:40 DC Bisacodyl (Dulcolax Suppository) 10 mg Q4HP PRN DE CONSTIPATION 08/29/19 16:30 Cefepime HCl 2 gm/ Dextrose 50 ml @ 100 mls/hr Q12H IV 08/29/19 23:00 08/31/19 11:33 Colchicine (Colcrys) 0.6 mg DAILY PO 08/29/19 17:00 08/31/19 10:06 Digoxin (Lanoxin) 0.25 mg DAILY PO 08/31/19 09:00 08/31/19 10:05 Docusate Sodium (Colace) 100 mg BID PO 08/29/19 21:00 08/30/19 10:28 Doxycycline Hyclate (Vibramycin) 100 mg BID PO 08/31/19 21:00 Duloxetine HCl (Cymbalta) 20 mg BID PO 08/29/19 21:00 08/31/19 10:05 Enoxaparin Sodium (Lovenox) 40 mg DAILY SC 08/30/19 09:00 08/31/19 10:04 Fentanyl Citrate (Sublimaze) 25 mcg Q5MP PRN IV PAIN LEVEL 5-10 08/29/19 18:45 08/29/19 19:45 DC Furosemide (LASIX injection) 40 mg BID@09,17 IV 08/31/19 09:00 08/31/19 11:33 Heparin Sodium (Heparin (Flush)) 200 units ASDIRECTED PRN IV SEE LABEL COMMENTS 08/30/19 18:00 Heparin Sodium (Heparin (Flush)) 200 units PICC IV 08/30/19 18:00 08/31/19 04:24 Heparin Sodium (Porcine) (Heparin) 5,000 units Q8H SQ 08/29/19 14:00 08/29/19 17:26 DC Home Med (Med Rec Complete!) ASDIRECTED XX 08/29/19 13:15 08/29/19 13:02 DC Lactated Ringer's 1,000 ml @ 100 mls/hr Q10H IV 08/29/19 18:45 08/29/19 19:45 DC Levalbuterol HCl (Xopenex Neb) 1.25 mg Q2HP PRN NEB WHEEZING 08/29/19 16:30 Levalbuterol HCl (Xopenex Neb) 1.25 mg RQ6H NEB 08/29/19 20:00 08/31/19 14:59 Levofloxacin 750 mg/IV Miscellaneous Supplies 150 ml @ 100 mls/hr Q24H IV 08/29/19 18:00 08/31/19 10:43 DC 08/30/19 18:10 Levothyroxine Sodium (Synthroid) 112 mcg DAILY@0600 PO 08/30/19 06:00 08/31/19 05:40 Lidocaine (Lidoderm Patch) 3 patch DAILY PRN TOP PAIN 08/29/19 13:15 Magnesium Hydroxide (Milk Of Magnesia) 30 ml DAILY PO 08/30/19 09:00 08/30/19 10:30 Meperidine HCl (Demerol) 12.5 mg Q5MP PRN IV SHIVERING 08/29/19 18:45 08/29/19 19:45 DC Methylprednisolone (SOLUmedrol) 125 mg Q8H IV 08/29/19 14:00 08/29/19 16:34 DC 08/29/19 13:26 Metoclopramide HCl (REGLAN INJection) 10 mg Q6HP PRN IV NAUSEA OR VOMITING 08/29/19 18:45 08/29/19 19:45 DC Metoprolol Succinate (TopROL XL) 12.5 mg BID PO 08/31/19 21:00 Metoprolol Succinate (TopROL XL) 25 mg BID PO 08/30/19 09:00 08/31/19 11:02 DC 08/31/19 10:05 Multivitamins (Theragram-M) 1 tab DAILY PO 08/30/19 09:00 08/31/19 10:43 DC 08/31/19 10:05 Nicotine (Nicoderm Cq 14mg) 1 patch DAILY TD 08/30/19 09:00 08/31/19 10:04 Non-Formulary Medication ( See Comment Field Below ) REMOVE LIDODERM PATCH DAILY@21 XX 08/29/19 21:00 08/29/19 21:00 Omeprazole (PriLOSEC) 40 mg DAILY PO 08/29/19 09:00 08/29/19 16:42 DC Ondansetron HCl (ZOFRAN INJection) 4 mg Q4HP PRN IV NAUSEA 08/29/19 16:30 Ondansetron HCl (ZOFRAN INJection) 4 mg Q4HP PRN IV NAUSEA OR VOMITING 08/29/19 18:45 08/29/19 19:45 DC Oxycodone/ Acetaminophen (Percocet 5mg/ 325mg Tablet) 1 tab ASDIRECTED PRN PO PAIN LEVEL 1-4 08/29/19 18:45 08/29/19 19:45 DC Oxycodone/ Acetaminophen (Percocet 5mg/ 325mg Tablet) 1 tab Q4H PRN PO MODERATE PAIN (PS 5-7) 08/29/19 16:30 Oxycodone/ Acetaminophen (Percocet 5mg/ 325mg Tablet) 2 tab Q4H PRN PO SEVERE PAIN (PS 8-10) 08/29/19 16:30 08/31/19 07:51 Pantoprazole Sodium (Protonix) 40 mg DAILY PO 08/30/19 09:00 08/31/19 10:05 Potassium Chloride/Dextrose/ Sod Cl 1,000 ml @ 75 mls/hr [id number] IV 08/29/19 16:25 08/29/19 19:49 DC 08/29/19 18:00 Potassium Chloride (Micro-K Extencaps) 10 meq DAILY PO 08/29/19 09:00 08/30/19 08:55 DC Potassium Chloride (Micro-K Extencaps) 20 meq BIDWM PO 08/30/19 08:00 08/31/19 10:41 DC 08/31/19 10:05 Potassium Chloride (Micro-K Extencaps) 40 meq BIDWM PO 08/31/19 18:00 Pregabalin (Lyrica) 75 mg BID PO 08/29/19 21:00 08/31/19 10:04 Sodium Chloride ([place] Nasal [place]) 2 spray Q2HP PRN NA NASAL DRYNESS 08/31/19 12:45 Sodium Chloride ([place] Flush) 10 ml ASDIRECTED PRN IV SEE LABEL COMMENTS 08/30/19 18:00 Sodium Chloride (Saline Lock Flush) 10 ml PICC IV 08/30/19 18:00 08/31/19 04:24 Vancomycin HCl 1000 mg/IV Miscellaneous Supplies 1 each/ Dextrose 270 ml @ 270 mls/hr Q12H IV 08/30/19 09:00 08/31/19 10:43 DC 08/31/19 10:03 Vitamin D (Vitamin D) 2,000 units DAILY PO 08/29/19 09:00 08/31/19 10:04 Allergies Coded Allergies: Iodinated Contrast Media (Verified Allergy, Severe, CONVULSIONS, 08/29/19) latex (Verified Allergy, Severe, SKIN IRRITATION, DIFFICULTY BREATHING, 08/29/19) naproxen (Verified Allergy, Severe, HIVES/ANAPHYLAXIS, 08/29/19) Penicillins (Verified Allergy, Intermediate, HIVES AND FEVER, 08/29/19) SEAFOOD (Verified Allergy, Unknown, 08/29/19) TAPE (Verified Allergy, Unknown, 08/29/19) bee venom protein (honey bee) (Verified Allergy, Unknown, 08/29/19) Neida Boyle MD Aug 31, 2019 16:21
[2019-08-31] MEDS: DOXYCYCLINE HYCLATE 100MG TABLET PO SCH (20:28)
[2019-08-31] MEDS: **NOTE PATIENT COMMENT** MISC XX SCH (21:00)
[2019-08-31] MEDS: METOPROLOL SUCC *XL* 12.5MG PER 1/2 TAB (TopROL *XL*) PO SCH (22:00)
[2019-09-01] VITALS (8 sets, daily range): BP systolic 85–110; BP diastolic 51–66
[2019-09-01] MEDS: LEVALBUTEROL 1.25 MG/0.5 ML CONCENTRATE NEB NEB SCH ×4 (02:00→19:33)
[2019-09-01] MEDS: PERCOCET 5MG/325MG TAB PO PRN (02:33)
[2019-09-01] MEDS: SODIUM CHLORIDE 0.9% INJ 10 ML SYR IV PRN ×2 (04:23→08:56)
[2019-09-01] MEDS: LEVOTHYROXINE 112MCG TABLET (0.112MG) PO SCH (05:13)
[2019-09-01] MEDS: SODIUM CHLORIDE 0.9% INJ 10 ML SYR IV SCH ×2 (05:13→17:31)
[2019-09-01 05:45] LABS: BASO % 0.3 % (0.0-1.0); EOS # 0.2 10^3/uL (0.0-0.5); EOS % 1.6 % (0.0-3.0); HEMATOCRIT 37.5 % (36.0-47.0); HEMOGLOBIN 12.5 g/dl (12.0-15.5); LYMPH # 3.5 10^3/uL (1.5-5.0); LYMPH % 30.1 % (24.0-44.0); MEAN CORPUSCULAR HEMOGLOBIN 30.3 pg (27.0-33.0); MEAN CORPUSCULAR HGB CONC 33.3 g/dl (32.0-36.5); MEAN CORPUSCULAR VOLUME 90.8 fl (80.0-96.0); MONO # 0.8 10^3/uL (0.0-0.8); MONO % 7.1 % (0.0-5.0); NEUTROPHILS % 60.4 % (36.0-66.0); PLATELET COUNT, AUTOMATED 407 10^3/uL (150-450); RED BLOOD COUNT 4.13 10^6/uL (4.00-5.40); WHITE BLOOD COUNT 11.7 10^3/uL (4.0-10.0)
[2019-09-01 05:59] LABS: BLOOD UREA NITROGEN 16 MG/DL (7-18); CARBON DIOXIDE LEVEL 33 MEQ/L (21-32); CHLORIDE LEVEL 101 MEQ/L (98-107); CREATININE FOR GFR 0.55 MG/DL (0.55-1.30); GLOMERULAR FILTRATION RATE > 60.0 (>45); GLUCOSE, FASTING 97 MG/DL (70-100); POTASSIUM SERUM 4.5 MEQ/L (3.5-5.1); SODIUM LEVEL 141 MEQ/L (136-145)
[2019-09-01 07:59] LABS: ALBUMIN 2.3 GM/DL (3.2-5.2); ALT/SGPT 74 U/L (12-78); BILIRUBIN,TOTAL 0.3 MG/DL (0.2-1.0); TOTAL PROTEIN 5.6 GM/DL (6.4-8.2)
--- NOTE | 2019-09-01 08:28 | REP ---
Chest x-ray: Two views. History: Pericardial and pleural effusion. Comparison chest x-ray August 31, 2019. Findings: Right pleural drainage catheter remains in place. There is blunting of the posterior and both lateral pleural angles unchanged consistent with small bilateral pleural effusions. A right-sided PICC line terminates in the expected location of the SVC. No new infiltrate. Electronically Signed by Parth Miles MD 09/01/2019 08:17 A
[2019-09-01] MEDS: NICOTINE 14 MG/24 HR TRANSDERMAL TD SCH (08:55)
[2019-09-01] MEDS: ENOXAPARIN 40MG/0.4ML SYRINGE (J1650 PER 10MG) SC SCH (08:55)
[2019-09-01] MEDS: FUROSEMIDE 40MG/4ML VIAL (J1940) IV SCH (08:56)
[2019-09-01] MEDS: VITAMIN D 1,000 INTERNATIONAL UNITS TABLET PO SCH (08:57)
[2019-09-01] MEDS: DOXYCYCLINE HYCLATE 100MG TABLET PO SCH (08:57)
[2019-09-01] MEDS: COLCHICINE 0.6 MG TAB PO SCH (08:58)
[2019-09-01] MEDS: DIGOXIN 0.25 MG TAB PO SCH (08:58)
[2019-09-01] MEDS: POTASSIUM CHLORIDE 10 MEQ SR TABLET PO SCH ×2 (08:59→17:31)
[2019-09-01] MEDS: MOM 30ML SUSPENSION UDC PO SCH (09:00)
[2019-09-01] MEDS: DOCUSATE SODIUM 100 MG CAP PO SCH ×2 (09:00→20:06)
[2019-09-01] MEDS: METOPROLOL SUCC *XL* 12.5MG PER 1/2 TAB (TopROL *XL*) PO SCH (09:01)
[2019-09-01] MEDS: PANTOPRAZOLE 40MG TAB (PROTONIX) PO SCH (09:01)
[2019-09-01] MEDS: PREGABALIN 75 MG CAP(LYRICA) PO SCH ×2 (09:02→20:07)
[2019-09-01] MEDS: DULoxetine 20 MG CAP (CYMBALTA) PO SCH ×2 (09:02→20:07)
[2019-09-01 09:20] LABS: DIGOXIN LEVEL 1.2 NG/ML (0.5-2.0)
--- NOTE | 2019-09-01 11:56 | CCN ---
DATE: 09/01/2019 The patient was seen and examined this morning during bedside rounds. The patient reports her breathing has continued to improve. She denies any significant chest pain currently. Has not had any significant cough. No wheezing noted. Did not have any fevers overnight. Her lower extremity mode is slowly improving her. PHYSICAL EXAM: Temperature 98, pulse 85, respirations 18, blood pressure 96/51, oxygen saturation 93% on room air. Ins 1.9 liters, out 2.9 liters, net negative 1 liter. General: Patient is sitting in bed is awake and alert is speaking in complete sentences and does not appear to be in acute respiratory distress. HEENT: Normocephalic, atraumatic. Pupils reactive to light bilaterally. Neck: Supple. Trachea is midline. There is no palpable cervical adenopathy. Cardiovascular: Regular rate and rhythm with normal S1, S2. Unable to appreciate murmurs. There is a mid sternal surgical incision with a dressing in place. The pericardial drain has been removed. There is right-sided chest tube in place to wall suction. Pulmonary: There are diminished breath sounds at the bases on the left more than the right with few crackles. No wheezing or rhonchi noted. Abdomen is soft, nontender, nondistended. No palpable mass. Extremities: There is mild pitting lower extremity edema in the bilateral lower extremities, which is slightly improved. LABS: WBC 11.7, hemoglobin 12.5, platelets are 407. Chemistry: Sodium is 141, potassium is 4.5, chloride is 101, bicarb 33, BUN 16, creatinine 0.55, glucose 97. BRAD was negative. Pleural fluid cultures were negative. IMAGING: Chest x-ray shows the right-sided chest tube in place. There are small bilateral pleural effusions noted. The pericardial drain has been removed. ASSESSMENT AND PLAN: Ms. Gallagher is a 59-year-old female with a past medical history of hypothyroidism secondary to ablation for hyperthyroidism, fibromyalgia, gastroesophageal reflux disease (GERD), previous history of small bowel obstruction, who had presented with complaint of worsening shortness breath and chest pain. The patient had acute hypoxemic respiratory failure on admission as well as a CT showing bilateral pleural effusions and the lower lobe atelectasis/consolidation with some more patchy alveolar infiltrates in the upper lobes in the right middle lobe. The patient also had a moderate pericardial effusion with suspicion of tamponade on echocardiogram. Patient had gone to the operating room (OR) emergently for placement of pericardial window and a drain as well as a right-sided chest tube. She was also noted to be new onset atrial fibrillation postprocedure. Acute hypoxemic respiratory failure, likely secondary to pulmonary edema with bilateral pleural effusions. Patient also with leukocytosis initially and some patchy scattered alveolar infiltrates in the lungs bilaterally more in the upper lobes which may be consistent with a possible infectious etiology. The lower lobe consolidations are likely atelectasis secondary to her effusions. - Given patient's symptoms, she was suspected to have a viral etiology, with a viral pneumonia and viral pericarditis. Bacterial pericarditis and pneumonia is still possible; however, her pericardial fluid cultures are negative. - Patient's pericardial drain was removed yesterday, and her right-sided chest tube has had minimal output overnight. I suspect is will likely be removed later today by cardiothoracic surgery. - The patient's oxygenation has been improving with diuresis. She was weaned off to room air earlier this morning although suspect she likely will need oxygen with more strenuous exertion. - She does continue have small bilateral pleural effusions and mild pitting edema, although improving. Will continue with intravenous (IV) Lasix 40 mg IV twice a day today and can likely transition her to by mouth Lasix tomorrow. - Will continue monitor her ins and outs and replete her electrolytes as tolerated with diuresis. - Will continue with incentive spirometer and out of bed to chair. - The patient's rheumatoid factor and BRAD was negative making a connective tissue disease, such as lupus etiology for her pericardial fluid, less likely. Her cytology is still pending, however, to rule out malignant pericardial effusion. - The patient was initially on broad-spectrum antibiotics for concern of potential healthcare-associated bacterial pneumonia. She has been afebrile and her leukocytosis has improved. Her antibiotics were de-escalated yesterday. Will continue de-escalation of antibiotics and consider changing her to just on oral antibiotics only to complete a 7-day course. The patient had new onset atrial fibrillation, likely in the setting of acute pericarditis as well as her pericardial window procedure. She has since converted into sinus rhythm and it is unclear if she will have persistent paroxysmal atrial fibrillation or if it was just due to this acute incident. - The patient's metoprolol was decreased yesterday. She is on digoxin. Would consider discontinuing her digoxin and perhaps continue with just a low-dose beta amanda with cardiology followup as an outpatient. The patient is a current active smoker. No previous history of chronic obstructive pulmonary disease (COPD). She has a nicotine patch for smoking cessation and is on nebulized bronchodilators as needed. Hypothyroidism. She is on home medications as per primary team. Deep venous thrombosis (DVT) prophylaxis. Lovenox. Gastrointestinal (GI) prophylaxis. Proton pump inhibitor (PPI). CODE STATUS: FULL CODE. Total critical care time spent not including procedures, approximately 30 minutes. MTDD
[2019-09-01] MEDS: CEFEPIME HCL 2 GM in D5W MINI-BAG PLUS 50 ML IV SCH (12:05)
--- NOTE | 2019-09-01 12:18 | IPN ---
DATE: 09/01/2019 This is now the third postoperative day for Mrs. Gallagher. She is now in progressive care unit (PCU). Her pain is being well controlled. She is breathing better and she is now on room air. Her vital signs show a maximum temperature (T-max) of 98.2 with a heart rate that ranges between 85 and 80 in a sinus rhythm, respiratory rate of 18-20 without the use of accessory muscles, who is 93% saturated on room air and whose blood pressure is ranging between 96/51 to 110/61. Her intake and output for the past 24 hours has been recorded as 1945 in and 2960 out for a negativity of 1000 mL. She has put 8 mL out the pleural tube with the pericardial tube having been removed yesterday. Her weight today is 60.4 kg compared to 60.3 kg yesterday. On physical examination, she has some crackles, which do not clear with coughing, in the right upper hemithorax. Percussion notes are full to the diaphragm. Cardiac exam does not show pericardial friction rub. There are no murmurs or clicks. I cannot feel her point of maximum impulse (PMI). S1, S2 are normal. Abdomen is soft and nontender. It is slightly tympanitic. Bowel sounds are positive. There is no costovertebral angle (CVA) tenderness. No hepatomegaly. Extremities now show trace pretibial edema. No calf tenderness. No differential swelling of the upper extremities. Skin is warm, dry and perfused, without cyanosis or mottling, including that of the nail beds and knees. Neck is supple. There is no jugular venous distention. No subcutaneous emphysema. Trachea is midline. Mouth shows her mucous membranes to be pink and moist. Lips and commissures are without lesions. There is no thrush. Eyes show her pupils to be equal and reactive. Extraocular movements intact. Sclerae nonicteric. Neurologic shows II-XII intact along with gross motor and gross sensation intact. Gait is not tested. Psychiatric shows her to be awake, alert and oriented times three with appropriate and affect and conversational. Her white count today is 11.7 with a hemoglobin and hematocrit of 12.5 and 37.5, respectively, up from 11.3 and 34.2, probably secondary to hemoconcentration. Platelet count is 407 and stable, and differential shows 60% neutrophils, 30% lymphocytes, and 10% monocytes. There are no immature forms, no toxic granulations. Her electrolytes are normal, except for a marginally high total CO2 of 33. Potassium is 4.5. She continues on twice a day IV Lasix 40 mg. Glucose is 97 with a calcium of 8.0 and an albumin of 2.3. Her chest x-ray today shows an ever so slight improvement in the left pleural effusion. Heart size is back to normal and nonglobular. I do not see any infiltrates. There may be something in the right upper lobe with increased alveolar markings proximally. Pathology is still pending. Her BRAD is negative. IMPRESSION: 1. Pericardial tamponade relieved with pericardial window and tube pericardiostomy. 2. Pericarditis, unknown cause at this time. Probably going to be viral by exclusion. 3. Atrial fibrillation secondary to pericarditis, resolved. 4. Fibromyalgia. 5. Hypothyroidism, secondary to radioactive thyroid ablation in the remote past. 6. Gastroesophageal reflux disease. 7. 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 8. Current tobacco abuse. 9. Left pleural effusion, slightly getting better. PLAN AND DISCUSSION: We will continue her on her Lasix. I would discontinue her antibiotics. I will also remove her pleural tube today. She continues on colchicine. She is not complaining of any midchest discomfort.
--- NOTE | 2019-09-01 15:12 | IPNPDOC ---
Date Seen The patient was seen on 09/01/19. Progress Note SUBJECTIVE: Post-op day 3. Pleural drain to be removed today. Neg fluid balance. Decreased IV lasix due to hypotension, stopped dig and BB as she has been in NSR and atrial fibrillation could have been 2/2 to sepsis, pericarditis. Transitioning to monotherapy with levofloxacin PO. She denies n/v/d, fevers or chills. OBJECTIVE: VITAL SIGNS: Please see below PHYSICAL EXAMINATION: CONSTITUTIONAL: No acute distress, resting comfortably, AAO x 3 in good spirits EYES: PERRLA, EOM intact HENT, MOUTH: Normocephalic, atraumatic, moist mucous membranes, NC in place NECK: SUPPLE, no JVD, no lymphadenopathy, no carotid bruit CV: NSR. S1S2 normal, no murmurs/rubs/gallops CHEST: pericardial window incision appears clean midsternal- healing nicely. pleural tube remains RESPIRATORY: Decreased breath sounds bilaterally . No rhonchi/wheezes GI: BS positive in 4 quadrants, soft, nontender, nondistended, no rebound or guarding, no organomegaly : deferred MUSCULOSKELETAL: Normal ROM. No cyanosis, clubbing, swelling, joint deformity, + 1 pitting extremity edema INTEGUMENTARY: Intact, no rashes, no lesions, no erythema NEUROLOGIC: Cranial Nerves II-XII are intact, no focal deficits PSYCHIATRIC: Mood and affect are normal CURRENT MEDICATIONS: Please see below LABORATORY DATA: Please see below. IMAGING: CXR 08/31: Findings: Right pleural drainage catheter remains in place. There is blunting of the posterior and both lateral pleural angles unchanged consistent with small bilateral pleural effusions. A right-sided PICC line terminates in the expected location of the SVC. No new infiltrate. Echocardiogram: 1. Normal global left ventricular systolic function. There are some features of left ventricular diastolic dysfunction, grade 2. EF 60-65% 2. Aortic valve sclerosis without stenosis or aortic regurgitation. 3. Trace to mild mitral regurgitation. Left atrium is normal in size. 4. Trace pericardial effusion. 5. Moderate pericardial effusion noted with some echocardiographic manifestation of early tamponade. It seems that the patient was taken to the operating room (OR) earlier in the day. 6. Bilateral pleural effusion also noted. ASSESSMENT: 59-year-old female admitted for acute hypoxic respiratory failure secondary to pericardial effusion post-op day 3 pericardial window and tube pericardiostomy. PLAN: 1. Acute on chronic hypoxic respiratory failure likely multifactorial to pericardial tamponade, pericarditis (likely viral; however, awaiting pathology), CHF with pleural effusions, ? viral vs. bacterial pneumonia (HCAP vs. CAP). 90% on 2 L NC, drops to 87% when taken off O2. Not on home O2. Please see below for treatment of individual issues. 2. Pericardial effusion with pericardial tamponade s/p pericardial window. Per thoracic surgery, likely viral cause. BRAD neg, RA neg. Pleural and pericardial tubes both out. Echo above. Fungal and pathology pending so can r/o malignancy with certainty but not highly suspicious of this either. C/w colchicine, lasix BID, abx. Will need repeat echocardiogram at some point. Thoracic surgery following. 3. Bilateral pneumonia, community vs. HCA with sepsis. On 2 L NC, will attempt to wean off. Deescalate to monotherapy with levofloxacin per pulmonary x 7 days PO. F/u pending cultures. Acapella Q2 hrs while awake, duoneb ATC, albuterol PRN. Pulmonary consulted 4. Atrial fibrillation. Currently NSR and has been since pericardial window. Could have been 2/2 to sepsis vs. pericarditis. Stopping digoxin and BB, monitor on tele. 5. Diastolic CHF, EF 60-65%. Bilateral pleural effusions on CT, elevated BNP, trop neg. No prior cardiac history. Echo above. Lasix BID, BB. 6. Transaminitis possibly 2/2 to congestive hepatopathy. Resolved. 7. Hypothyroidism. TSH wnl. C/w home med. 8. Fibromyalgia. Stable. C/w home medications. 9. Tobacco use. Nicotine patch. 10. GERD/hx of Devine's esophagus. PPI. 11. DVT px. Enoxaparin daily. DISPOSITION: Improving daily. Hopeful for discharge in the next several days. PT/OT ordered. VS, I&O, 24H, Fishbone Vital Signs/I&O Vital Signs Date Time Temp Pulse Resp B/P (MAP) Pulse Ox O2 Delivery O2 Flow Rate FiO2 09/01/19 12:00 98.8 101 18 90/60 (70) 87 Room Air 09/01/19 04:00 2.0 I&O- Last 24 Hours up to 6 AM 09/01/19 06:00 Intake Total 1645 ml Output Total 3075 ml Balance -1430 ml Laboratory Data 24H LABS Laboratory Tests 2 09/01/19 05:19: Immature Granulocyte % (Auto) 0.5, Neutrophils (%) (Auto) 60.4, Lymphocytes (%) (Auto) 30.1, Monocytes (%) (Auto) 7.1H, Eosinophils (%) (Auto) 1.6, Basophils (%) (Auto) 0.3, Neutrophils # (Auto) 7.0, Lymphocytes # (Auto) 3.5, Monocytes # (Auto) 0.8, Eosinophils # (Auto) 0.2, Basophils # (Auto) 0.0, Nucleated Red Blood Cells % (auto) 0.0, Anion Gap 7L, Glomerular Filtration Rate > 60.0, Calcium Level 8.0L, Total Bilirubin 0.3, Aspartate Amino Transf (AST/SGOT) 31, Alanine Aminotransferase (ALT/SGPT) 74, Alkaline Phosphatase 110, Total Protein 5.6L, Albumin 2.3L, Albumin/Globulin Ratio 0.7L, Digoxin Level 1.2 CBC/BMP Laboratory Tests 09/01/19 05:19 Microbiology Microbiology 08/29/19 Blood Culture - Preliminary, Resulted No Growth after 48 hours. All Specime... 08/29/19 Blood Culture - Preliminary, Resulted No Growth after 48 hours. All Specime... 08/29/19 Acid Fast Stain, Received Pending 08/29/19 Mycobacterial Culture, Received Pending 08/29/19 Fungal Smear, Received Pending 08/29/19 Fungal Culture, Received Pending 08/29/19 Acid Fast Stain, Received Pending 08/29/19 Mycobacterial Culture, Received Pending 08/29/19 Fungal Smear, Received Pending 08/29/19 Fungal Culture, Received Pending 08/29/19 Gram Stain - Final, Complete 08/29/19 Body Fluid Culture - Final, Complete 08/29/19 Anaerobic Culture - Final, Complete 08/29/19 Gram Stain - Final, Complete 08/29/19 Body Fluid Culture - Final, Complete 08/29/19 Anaerobic Culture - Final, Complete Current Medications Current Medications Medications (Trade) Dose Ordered Sig/Shelby Route PRN Reason Start Time Stop Time Status Last Admin Dose Admin Acetaminophen (Tylenol Tab) 650 mg Q6HP PRN PO PAIN / FEVER 6/18/20 13:30 08/31/19 15:44 Acetaminophen/ Hydrocodone Bitart ([place], Anexsia 5/325) 1 tab Q3H PRN PO MILD PAIN (PS 1-4) 08/29/19 16:30 08/31/19 01:42 Albuterol Sulfate (Proventil Neb) 2.5 mg Q2HP PRN NEB SOB/WHEEZING 08/29/19 12:00 08/29/19 16:40 DC Albuterol/ Ipratropium (Duoneb (Ipr 0.5mg/Alb 2.5mg)) 3 ml RQ4H NEB 08/29/19 16:00 08/29/19 16:40 DC Bisacodyl (Dulcolax Suppository) 10 mg Q4HP PRN [place] CONSTIPATION 08/29/19 16:30 Cefepime HCl 2 gm/ Dextrose 50 ml @ 100 mls/hr Q12H IV 08/29/19 23:00 09/01/19 14:49 DC 09/01/19 12:05 Colchicine (Colcrys) 0.6 mg DAILY PO 08/29/19 17:00 09/01/19 08:58 Digoxin (Lanoxin) 0.25 mg DAILY PO 08/31/19 09:00 09/01/19 08:58 Docusate Sodium (Colace) 100 mg BID PO 08/29/19 21:00 08/31/19 20:28 Doxycycline Hyclate (Vibramycin) 100 mg BID PO 08/31/19 21:00 09/01/19 14:49 DC 09/01/19 08:57 Duloxetine HCl (Cymbalta) 20 mg BID PO 08/29/19 21:00 09/01/19 09:02 Enoxaparin Sodium (Lovenox) 40 mg DAILY SC 08/30/19 09:00 09/01/19 08:55 Fentanyl Citrate (Sublimaze) 25 mcg Q5MP PRN IV PAIN LEVEL 5-10 08/29/19 18:45 08/29/19 19:45 DC Furosemide (LASIX injection) 20 mg BID@09,17 IV 09/01/19 17:00 UNV Furosemide (LASIX injection) 40 mg BID@09,17 IV 08/31/19 09:00 09/01/19 14:48 DC 09/01/19 08:56 Heparin Sodium (Heparin (Flush)) 200 units ASDIRECTED PRN IV SEE LABEL COMMENTS 08/30/19 18:00 09/01/19 08:56 Heparin Sodium (Heparin (Flush)) 200 units PICC IV 08/30/19 18:00 09/01/19 05:13 Heparin Sodium (Porcine) (Heparin) 5,000 units Q8H SQ 08/29/19 14:00 08/29/19 17:26 DC Home Med (Med Rec Complete!) ASDIRECTED XX 08/29/19 13:15 08/29/19 13:02 DC Lactated Ringer's 1,000 ml @ 100 mls/hr Q10H IV 08/29/19 18:45 08/29/19 19:45 DC Levalbuterol HCl (Xopenex Neb) 1.25 mg Q2HP PRN NEB WHEEZING 08/29/19 16:30 Levalbuterol HCl (Xopenex Neb) 1.25 mg RQ6H NEB 08/29/19 20:00 08/31/19 20:05 Levofloxacin 750 mg/IV Miscellaneous Supplies 150 ml @ 100 mls/hr Q24H IV 08/29/19 18:00 08/31/19 10:43 DC 08/30/19 18:10 Levothyroxine Sodium (Synthroid) 112 mcg DAILY@0600 PO 08/30/19 06:00 09/01/19 05:13 Lidocaine (Lidoderm Patch) 3 patch DAILY PRN TOP PAIN 08/29/19 13:15 Magnesium Hydroxide (Milk Of Magnesia) 30 ml DAILY PO 08/30/19 09:00 08/30/19 10:30 Meperidine HCl (Demerol) 12.5 mg Q5MP PRN IV SHIVERING 08/29/19 18:45 08/29/19 19:45 DC Methylprednisolone (SOLUmedrol) 125 mg Q8H IV 08/29/19 14:00 08/29/19 16:34 DC 08/29/19 13:26 Metoclopramide HCl (REGLAN INJection) 10 mg Q6HP PRN IV NAUSEA OR VOMITING 08/29/19 18:45 08/29/19 19:45 DC Metoprolol Succinate (TopROL XL) 12.5 mg BID PO 08/31/19 21:00 09/01/19 09:01 Metoprolol Succinate (TopROL XL) 25 mg BID PO 08/30/19 09:00 08/31/19 11:02 DC 08/31/19 10:05 Multivitamins (Theragram-M) 1 tab DAILY PO 08/30/19 09:00 08/31/19 10:43 DC 08/31/19 10:05 Nicotine (Nicoderm Cq 14mg) 1 patch DAILY TD 08/30/19 09:00 09/01/19 08:55 Non-Formulary Medication ( See Comment Field Below ) REMOVE LIDODERM PATCH DAILY@21 XX 08/29/19 21:00 08/29/19 21:00 Omeprazole (PriLOSEC) 40 mg DAILY PO 08/29/19 09:00 08/29/19 16:42 DC Ondansetron HCl (ZOFRAN INJection) 4 mg Q4HP PRN IV NAUSEA 08/29/19 16:30 Ondansetron HCl (ZOFRAN INJection) 4 mg Q4HP PRN IV NAUSEA OR VOMITING 08/29/19 18:45 08/29/19 19:45 DC Oxycodone/ Acetaminophen (Percocet 5mg/ 325mg Tablet) 1 tab ASDIRECTED PRN PO PAIN LEVEL 1-4 08/29/19 18:45 08/29/19 19:45 DC Oxycodone/ Acetaminophen (Percocet 5mg/ 325mg Tablet) 1 tab Q4H PRN PO MODERATE PAIN (PS 5-7) 08/29/19 16:30 08/31/19 16:50 Oxycodone/ Acetaminophen (Percocet 5mg/ 325mg Tablet) 2 tab Q4H PRN PO SEVERE PAIN (PS 8-10) 08/29/19 16:30 09/01/19 02:33 Pantoprazole Sodium (Protonix) 40 mg DAILY PO 08/30/19 09:00 09/01/19 09:01 Potassium Chloride/Dextrose/ Sod Cl 1,000 ml @ 75 mls/hr [id number] IV 08/29/19 16:25 08/29/19 19:49 DC 08/29/19 18:00 Potassium Chloride (Micro-K Extencaps) 10 meq DAILY PO 08/29/19 09:00 08/30/19 08:55 DC Potassium Chloride (Micro-K Extencaps) 20 meq BIDWM PO 08/30/19 08:00 08/31/19 10:41 DC 08/31/19 10:05 Potassium Chloride (Micro-K Extencaps) 40 meq BIDWM PO 08/31/19 18:00 09/01/19 08:59 Pregabalin (Lyrica) 75 mg BID PO 08/29/19 21:00 09/01/19 09:02 Sodium Chloride ([place] Nasal [place]) 2 spray Q2HP PRN NA NASAL DRYNESS 08/31/19 12:45 Sodium Chloride (Saline Lock Flush) 10 ml ASDIRECTED PRN IV SEE LABEL COMMENTS 08/30/19 18:00 09/01/19 08:56 Sodium Chloride (Saline Lock Flush) 10 ml PICC IV 08/30/19 18:00 09/01/19 05:13 Vancomycin HCl 1000 mg/IV Miscellaneous Supplies 1 each/ Dextrose 270 ml @ 270 mls/hr Q12H IV 08/30/19 09:00 08/31/19 10:43 DC 08/31/19 10:03 Vitamin D (Vitamin D) 2,000 units DAILY PO 08/29/19 09:00 09/01/19 08:57 Allergies Coded Allergies: Iodinated Contrast Media (Verified Allergy, Severe, CONVULSIONS, 08/29/19) latex (Verified Allergy, Severe, SKIN IRRITATION, DIFFICULTY BREATHING, 08/29/19) naproxen (Verified Allergy, Severe, HIVES/ANAPHYLAXIS, 08/29/19) Penicillins (Verified Allergy, Intermediate, HIVES AND FEVER, 08/29/19) SEAFOOD (Verified Allergy, Unknown, 08/29/19) TAPE (Verified Allergy, Unknown, 08/29/19) bee venom protein (honey bee) (Verified Allergy, Unknown, 08/29/19) Neida Boyle MD Sep 01, 2019 15:12
[2019-09-01] MEDS ORDERED: FUROSEMIDE 20MG/2ML VIAL (J1940) IV SCH (17:00)
[2019-09-01] MEDS: LevoFLOXacin 750 MG TABLET PO SCH (17:31)
[2019-09-01] MEDS: **NOTE PATIENT COMMENT** MISC XX SCH (20:57)
[2019-09-02] VITALS (22 sets, daily range): BP systolic 76–98; BP diastolic 42–56; O2SAT 89–94
[2019-09-02] MEDS: LEVALBUTEROL 1.25 MG/0.5 ML CONCENTRATE NEB NEB SCH ×4 (01:04→20:18)
[2019-09-02] MEDS: LEVOTHYROXINE 112MCG TABLET (0.112MG) PO SCH (05:21)
[2019-09-02] MEDS: SODIUM CHLORIDE 0.9% INJ 10 ML SYR IV SCH ×2 (05:22→18:33)
[2019-09-02 05:52] LABS: BASO # 0.1 10^3/uL (0.0-0.2); BASO % 0.4 % (0.0-1.0); EOS # 0.4 10^3/uL (0.0-0.5); EOS % 2.9 % (0.0-3.0); HEMATOCRIT 39.8 % (36.0-47.0); HEMOGLOBIN 13.5 g/dl (12.0-15.5); LYMPH # 3.9 10^3/uL (1.5-5.0); LYMPH % 31.8 % (24.0-44.0); MEAN CORPUSCULAR HEMOGLOBIN 30.5 pg (27.0-33.0); MEAN CORPUSCULAR HGB CONC 33.9 g/dl (32.0-36.5); MONO # 0.9 10^3/uL (0.0-0.8); MONO % 7.6 % (0.0-5.0); NEUTROPHILS # 6.9 10^3/uL (1.5-8.5); NEUTROPHILS % 56.6 % (36.0-66.0); PLATELET COUNT, AUTOMATED 441 10^3/uL (150-450); RED BLOOD COUNT 4.42 10^6/uL (4.00-5.40); WHITE BLOOD COUNT 12.3 10^3/uL (4.0-10.0)
[2019-09-02] MEDS ORDERED: NS 250 ML IV ONE (06:00)
[2019-09-02 06:07] LABS: ALBUMIN 2.3 GM/DL (3.2-5.2); ALT/SGPT 52 U/L (12-78); BILIRUBIN,TOTAL 0.3 MG/DL (0.2-1.0); BLOOD UREA NITROGEN 12 MG/DL (7-18); CARBON DIOXIDE LEVEL 33 MEQ/L (21-32); CHLORIDE LEVEL 98 MEQ/L (98-107); CREATININE FOR GFR 0.66 MG/DL (0.55-1.30); GLOMERULAR FILTRATION RATE > 60.0 (>45); GLUCOSE, FASTING 103 MG/DL (70-100); POTASSIUM SERUM 4.1 MEQ/L (3.5-5.1); SODIUM LEVEL 135 MEQ/L (136-145); TOTAL PROTEIN 6.3 GM/DL (6.4-8.2)
[2019-09-02] MEDS: ENOXAPARIN 40MG/0.4ML SYRINGE (J1650 PER 10MG) SC SCH (08:51)
[2019-09-02] MEDS: VITAMIN D 1,000 INTERNATIONAL UNITS TABLET PO SCH (08:51)
[2019-09-02] MEDS: DULoxetine 20 MG CAP (CYMBALTA) PO SCH ×2 (08:52→20:03)
[2019-09-02] MEDS: COLCHICINE 0.6 MG TAB PO SCH (08:52)
[2019-09-02] MEDS: PANTOPRAZOLE 40MG TAB (PROTONIX) PO SCH (08:52)
[2019-09-02] MEDS: NICOTINE 14 MG/24 HR TRANSDERMAL TD SCH (08:52)
[2019-09-02] MEDS: PREGABALIN 75 MG CAP(LYRICA) PO SCH ×2 (08:53→20:03)
[2019-09-02] MEDS: POTASSIUM CHLORIDE 10 MEQ SR TABLET PO SCH (08:53)
[2019-09-02] MEDS: DOCUSATE SODIUM 100 MG CAP PO SCH ×2 (09:00→20:02)
[2019-09-02] MEDS: MOM 30ML SUSPENSION UDC PO SCH (09:00)
[2019-09-02] MEDS ORDERED: FUROSEMIDE 20 MG TAB PO ONE (10:00)
--- NOTE | 2019-09-02 11:19 | REP ---
Chest x-ray: Two views. History: Pericardial and pleural effusion. Comparison chest x-ray: September 01, 2019. Findings: The right chest tube has been removed in the interval since yesterday's radiograph. There are small bilateral pleural effusions again noted unchanged. There is mild fissural thickening. No new infiltrate. A right-sided PICC line is seen. Monitoring electrodes are noted. There are surgical clips in the upper abdomen. Electronically Signed by Parth Miles MD 09/02/2019 07:42 A
[2019-09-02] MEDS: NS 1,000 ML IV SCH ×2 (12:24→22:32)
--- NOTE | 2019-09-02 12:39 | IPN ---
DATE OF SERVICE: 09/02/2019 This is now the fourth postoperative day for Mrs. Gallagher. She is doing well. However, last night she became hypotensive. This is probably in response to overdiuresing her. Her vital signs show a maximum temperature (Tmax) of 98.6 with a heart rate that ranges between 97 and 83 in a sinus rhythm, respiratory rate of 16 with a blood pressure that reached a low of 78/42 at 4 o'clock this morning and is now 95/56 after a bolus of normal saline. Her intake and output for the past 24 hours has been recorded as 460 in and 2300 out for a negativity of 1840 mL. She weighs 58.3 kg today compared to 60.4 kg yesterday. On physical examination, her lungs show decreased breath sounds at the left lower base. There are some inspiratory crackles. The right lung shows normal vesicular sounds with a full percussion note to the diaphragm. Cardiac examination is without murmurs, click, gallops, and particularly I cannot hear a pericardial friction rub. I cannot feel her point of maximum impulse (PMI). S1, S2 are normal. Abdomen is soft and nontender. Bowel sounds are positive. There is no costovertebral angle (CVA) tenderness. No hepatomegaly. Extremities show no pretibial edema. No calf tenderness. No differential swelling of the upper extremities. Skin is warm, dry, and perfused without cyanosis or mottling, including that of the nail beds and the knees. Neck is supple. There is no jugular venous distention. No subcutaneous emphysema. Trachea is midline. Mouth shows her mucous membranes to be pink and moist. Lips and commissures are without lesions. There is no thrush. Eyes show her pupils to be equal and reactive. Extraocular movements intact. Sclerae anicteric. Neurologic shows II-XII intact along with gross motor and gross sensation intact. Gait is not tested. Psychiatric shows her to be awake, alert, and oriented times three with appropriate and affect and conversational. While I did not test her gait, she did walk down successfully to chest x-ray without feeling faint. She does maintain that her normal blood pressure is in the 90s. When walking down to chest x-ray, she did desaturate down to 88%. Her white count today is 12.3 which is essentially unchanged from yesterday with a hemoglobin and hematocrit of 13.5 and 39.8 compared to 12.5 and 37.5 yesterday. This is probably secondary to hemoconcentration. Platelet count is 441 with a differential that shows 56% neutrophils, 31% lymphocytes, 7% monocytes. There are no immature forms, no toxic granulations. Her electrolytes show a marginally low sodium at 135 with a marginally increased total CO2 of 33. BUN and creatinine are 12 and 0.66. Glucose is 103 with a calcium of 9.0 with a corresponding albumin of 2.3. AST and ALT are normal. Her pathology has been reported back as negative for malignancy. Her chest x-ray today still shows a left-side pleural effusion with blunting in the right costophrenic angle. The lateral chest x-ray is essentially unchanged from yesterday. I think that over time, this will resolve itself as her pericardial tamponade has now been resolved with a pericardial window. IMPRESSION: 1. Postoperative day #4, status post pericardial window and tube pericardiostomy. 2. Pericardial tamponade, relieved with a pericardial window and tube pericardiostomy. 3. Pericarditis, unknown cause at this time but probably going to be viral by exclusion. 4. Atrial fibrillation secondary to pericarditis, resolved. 5. Fibromyalgia. 6. Hypothyroidism secondary to radioactive thyroid ablation in the remote past. 7. Gastroesophageal reflux disease (GERD). 8. History of small bowel resections with lysis of adhesions. 9. Small bowel obstruction with lysis of adhesions. 10. Current tobacco abuse. 11. Left pleural effusion, stable. PLAN AND DISCUSSION: We should plan for discharge in the morning. I do think that we did overdiurese her, but she is essentially asymptomatic. Her kidney function is stable and unaffected. She was given a bolus of 500 mL of normal saline today. We will keep her on a minimal diuretic dose of 20 mg of intravenous (IV) by mouth. We will reevaluate her oxygen requirement tomorrow. If she only desaturates to 88% with ambulation, she should not need home oxygen (O2).
--- NOTE | 2019-09-02 14:59 | IPNPDOC ---
Date Seen The patient was seen on 09/02/19. Progress Note SUBJECTIVE: Post-op day 4. Hypotension likely secondary to overdiuresis, Lasix stopped. Patient was started on IV fluids at 100 mL an hour and given a 500 mL bolus to hopefully help increase her blood pressure. She is dropping down to 87% with walking desaturation test, will need to be repeated on 09/03/2019 to ensure that the patient is not persistently hypoxic. If she does require oxygen and if the plan is to send her home, home oxygen will need to be arranged prior to that happening. The patient denies lightheadedness, dizziness, chest pain, shortness of breath increased, nausea, vomiting, fevers or chills. OBJECTIVE: VITAL SIGNS: Please see below PHYSICAL EXAMINATION: CONSTITUTIONAL: No acute distress, resting comfortably, AAO x 3 in good spirits EYES: PERRLA, EOM intact HENT, MOUTH: Normocephalic, atraumatic, moist mucous membranes, NC in place NECK: SUPPLE, no JVD, no lymphadenopathy, no carotid bruit CV: NSR. S1S2 normal, no murmurs/rubs/gallops CHEST: pericardial window incision appears clean midsternal- healing nicely. RESPIRATORY: Decreased breath sounds bilaterally . Crackles in the posterior base of both lung arevalo, mildly improved. No rhonchi/wheezes GI: BS positive in 4 quadrants, soft, nontender, nondistended, no rebound or guarding, no organomegaly : deferred MUSCULOSKELETAL: Normal ROM. No cyanosis, clubbing, swelling, joint deformity, + 1 pitting extremity edema INTEGUMENTARY: Intact, no rashes, no lesions, no erythema NEUROLOGIC: Cranial Nerves II-XII are intact, no focal deficits PSYCHIATRIC: Mood and affect are normal CURRENT MEDICATIONS: Please see below LABORATORY DATA: Please see below. IMAGING: CXR 09/02/19: The right chest tube has been removed in the interval since yesterday's radiograph. There are small bilateral pleural effusions again noted unchanged. There is mild fissural thickening. No new infiltrate. A right- sided PICC line is seen. Monitoring electrodes are noted. There are surgical clips in the upper abdomen. ASSESSMENT: 59-year-old female admitted for acute hypoxic respiratory failure secondary to pericardial effusion post-op day 4 pericardial window and tube pericardiostomy. PLAN: 1. Hypotension likely 2/2 to overdiuresis. Given 500 cc bolus now and started on IVFs this afternoon, as pressures remain low at 88/50. Continue to monitor closely on telemetry, I&O. 2. Acute on chronic hypoxic respiratory failure currently 2/2 to pericarditis (likely viral; however, awaiting pathology), CHF with bilateral pleural effusions, pneumonia (HCAP vs. CAP). 94% on 1-2L, 87% when taken off O2 or walked. Will need walking test with respiratory prior to discharge, in the event that she is hypoxic with activity and may need home O2. Please see below for treatment of individual issues. 2. Pericardial effusion with pericardial tamponade s/p pericardial window. Per t horacic surgery, likely viral cause. BRAD neg, RA neg. Echo above. Pathology: Acute and chronic pericarditis with fat necrosis and reactive mesothelial changes but neg for malignancy. Fungal studies are pending. C/w colchicine. Will need repeat echocardiogram at some point. Thoracic surgery following. 3. Bilateral pneumonia, community vs. HCA. C/w levofloxacin (to complete 6/7 more days then d/c). C/w Acapella Q2 hrs while awake, duoneb ATC, albuterol PRN. 4. Atrial fibrillation. Resolved. Currently NSR and has been since pericardial window. Could have been 2/2 to sepsis vs. pericarditis. Stopping digoxin and BB, monitor on tele. 5. Diastolic CHF, EF 60-65%. Bilateral pleural effusions on CT, elevated BNP, trop neg. No prior cardiac history. Echo above. Lasix and BB stopped due to hy potension. 7. Hypothyroidism. TSH wnl. C/w home med. 8. Fibromyalgia. Stable. C/w home medications. 9. Tobacco use. Nicotine patch. 10. GERD/hx of Devine's esophagus. PPI. 11. DVT px. Enoxaparin daily. DISPOSITION: Will need O2 study prior to discharge, because may need home O2 if plan is to send home in next several days. REcommend this being done in AM on 09/03/19. Plan is discharge home when medically improved. VS, I&O, 24H, Fishbone Vital Signs/I&O Vital Signs Date Time Temp Pulse Resp B/P (MAP) Pulse Ox O2 Delivery O2 Flow Rate FiO2 09/02/19 14:05 88/50 (63) 09/02/19 12:00 2.0 09/02/19 12:00 97.3 91 18 94 Nasal Cannula I&O- Last 24 Hours up to 6 AM 09/02/19 06:00 Intake Total 560 ml Output Total 2600 ml Balance -2040 ml Laboratory Data 24H LABS Laboratory Tests 2 09/02/19 05:22: Immature Granulocyte % (Auto) 0.7, Neutrophils (%) (Auto) 56.6, Lymphocytes (%) (Auto) 31.8, Monocytes (%) (Auto) 7.6H, Eosinophils (%) (Auto) 2.9, Basophils (%) (Auto) 0.4, Neutrophils # (Auto) 6.9, Lymphocytes # (Auto) 3.9, Monocytes # (Auto) 0.9H, Eosinophils # (Auto) 0.4, Basophils # (Auto) 0.1, Nucleated Red Bl ood Cells % (auto) 0.0, Anion Gap 4L, Glomerular Filtration Rate > 60.0, Calcium Level 9.0, Total Bilirubin 0.3, Aspartate Amino Transf (AST/SGOT) 21, Alanine Aminotransferase (ALT/SGPT) 52, Alkaline Phosphatase 96, Total Protein 6.3L, Albumin 2.3L, Albumin/Globulin Ratio 0.6L CBC/BMP Laboratory Tests 09/02/19 05:22 Microbiology Microbiology 08/29/19 Blood Culture - Preliminary, Resulted No Growth after 72 hours. All specime... 08/29/19 Blood Culture - Preliminary, Resulted No Growth after 72 hours. All specime... 08/29/19 Acid Fast Stain, Received Pending 08/29/19 Mycobacterial Culture, Received Pending 08/29/19 Fungal Smear, Received Pending 08/29/19 Fungal Culture, Received Pending 08/29/19 Acid Fast Stain, Received Pending 08/29/19 Mycobacterial Culture, Received Pending 08/29/19 Fungal Smear, Received Pending 08/29/19 Fungal Culture, Received Pending 08/29/19 Gram Stain - Final, Complete 08/29/19 Body Fluid Culture - Final, Complete 08/29/19 Anaerobic Culture - Final, Complete 08/29/19 Gram Stain - Final, Complete 08/29/19 Body Fluid Culture - Final, Complete 08/29/19 Anaerobic Culture - Final, Complete Current Medications Current Medications Medications (Trade) Dose Ordered Sig/Shelby Route PRN Reason Start Time Stop Time Status Last Admin Dose Admin Acetaminophen (Tylenol Tab) 650 mg Q6HP PRN PO PAIN / FEVER 08/29/19 13:30 08/31/19 15:44 Acetaminophen/ Hydrocodone Bitart ([place], Anexsia 5/325) 1 tab Q3H PRN PO MILD PAIN (PS 1-4) 08/29/19 16:30 08/31/19 01:42 Albuterol Sulfate (Proventil Neb) 2.5 mg Q2HP PRN NEB SOB/WHEEZING 08/29/19 12:00 08/29/19 16:40 DC Albuterol/ Ipratropium (Duoneb (Ipr 0.5mg/Alb 2.5mg)) 3 ml RQ4H NEB 08/29/19 16:00 08/29/19 16:40 DC Bisacodyl (Dulcolax Suppository) 10 mg Q4HP PRN [place] CONSTIPATION 08/29/19 16:30 Cefepime HCl 2 gm/ Dextrose 50 ml @ 100 mls/hr Q12H IV 08/29/19 23:00 09/01/19 14:49 DC 09/01/19 12:05 Colchicine (Colcrys) 0.6 mg DAILY PO 08/29/19 17:00 09/02/19 08:52 Digoxin (Lanoxin) 0.25 mg DAILY PO 08/31/19 09:00 09/01/19 15:08 DC 09/01/19 08:58 Docusate Sodium (Colace) 100 mg BID PO 08/29/19 21:00 08/31/19 20:28 Doxycycline Hyclate (Vibramycin) 100 mg BID PO 08/31/19 21:00 09/01/19 14:49 DC 09/01/19 08:57 Duloxetine HCl (Cymbalta) 20 mg BID PO 08/29/19 21:00 09/02/19 08:52 Enoxaparin Sodium (Lovenox) 40 mg DAILY SC 08/30/19 09:00 09/02/19 08:51 Fentanyl Citrate (Sublimaze) 25 mcg Q5MP PRN IV PAIN LEVEL 5-10 08/29/19 18:45 08/29/19 19:45 DC Furosemide (LASIX injection) 20 mg BID@09,17 IV 09/01/19 17:00 09/02/19 08:45 DC 09/01/19 17:32 Furosemide (LASIX injection) 40 mg BID@09,17 IV 08/31/19 09:00 09/01/19 14:48 DC 09/01/19 08:56 Heparin Sodium (Heparin (Flush)) 200 units ASDIRECTED PRN IV SEE LABEL COMMENTS 08/30/19 18:00 09/01/19 08:56 Heparin Sodium (Heparin (Flush)) 200 units PICC IV 08/30/19 18:00 09/02/19 05:21 Heparin Sodium (Porcine) (Heparin) 5,000 units Q8H SQ 08/29/19 14:00 08/29/19 17:26 DC Home Med (Med Rec Complete!) ASDIRECTED XX 08/29/19 13:15 08/29/19 13:02 DC Lactated Ringer's 1,000 ml @ 100 mls/hr Q10H IV 08/29/19 18:45 08/29/19 19:45 DC Levalbuterol HCl (Xopenex Neb) 1.25 mg Q2HP PRN NEB WHEEZING 08/29/19 16:30 Levalbuterol HCl (Xopenex Neb) 1.25 mg RQ6H NEB 08/29/19 20:00 09/02/19 13:34 Levofloxacin (Levaquin) 750 mg DAILY@1800 PO 09/01/19 18:00 09/07/19 18:01 09/01/19 17:31 Levofloxacin 750 mg/IV Miscellaneous Supplies 150 ml @ 100 mls/hr Q24H IV 08/29/19 18:00 08/31/19 10:43 DC 08/30/19 18:10 Levothyroxine Sodium (Synthroid) 112 mcg DAILY@0600 PO 08/30/19 06:00 09/02/19 05:21 Lidocaine (Lidoderm Patch) 3 patch DAILY PRN TOP PAIN 08/29/19 13:15 Magnesium Hydroxide (Milk Of Magnesia) 30 ml DAILY PO 08/30/19 09:00 08/30/19 10:30 Meperidine HCl (Demerol) 12.5 mg Q5MP PRN IV SHIVERING 08/29/19 18:45 08/29/19 19:45 DC Methylprednisolone (SOLUmedrol) 125 mg Q8H IV 08/29/19 14:00 08/29/19 16:34 DC 08/29/19 13:26 Metoclopramide HCl (REGLAN INJection) 10 mg Q6HP PRN IV NAUSEA OR VOMITING 08/29/19 18:45 08/29/19 19:45 DC Metoprolol Succinate (TopROL XL) 12.5 mg BID PO 08/31/19 21:00 09/01/19 15:08 DC 09/01/19 09:01 Metoprolol Succinate (TopROL XL) 25 mg BID PO 08/30/19 09:00 08/31/19 11:02 DC 08/31/19 10:05 Multivitamins (Theragram-M) 1 tab DAILY PO 08/30/19 09:00 08/31/19 10:43 DC 08/31/19 10:05 Nicotine (Nicoderm Cq 14mg) 1 patch DAILY TD 08/30/19 09:00 09/02/19 08:52 Non-Formulary Medication ( See Comment Field Below ) REMOVE LIDODERM PATCH DAILY@21 XX 08/29/19 21:00 08/29/19 21:00 Omeprazole (PriLOSEC) 40 mg DAILY PO 08/29/19 09:00 08/29/19 16:42 DC Ondansetron HCl (ZOFRAN INJection) 4 mg Q4HP PRN IV NAUSEA 08/29/19 16:30 Ondansetron HCl (ZOFRAN INJection) 4 mg Q4HP PRN IV NAUSEA OR VOMITING 08/29/19 18:45 08/29/19 19:45 DC Oxycodone/ Acetaminophen (Percocet 5mg/ 325mg Tablet) 1 tab ASDIRECTED PRN PO PAIN LEVEL 1-4 08/29/19 18:45 08/29/19 19:45 DC Oxycodone/ Acetaminophen (Percocet 5mg/ 325mg Tablet) 1 tab Q4H PRN PO MODERATE PAIN (PS 5-7) 08/29/19 16:30 08/31/19 16:50 Oxycodone/ Acetaminophen (Percocet 5mg/ 325mg Tablet) 2 tab Q4H PRN PO SEVERE PAIN (PS 8-10) 08/29/19 16:30 09/01/19 02:33 Pantoprazole Sodium (Protonix) 40 mg DAILY PO 08/30/19 09:00 09/02/19 08:52 Potassium Chloride/Dextrose/ Sod Cl 1,000 ml @ 75 mls/hr [id number] IV 08/29/19 16:25 08/29/19 19:49 DC 08/29/19 18:00 Potassium Chloride (Micro-K Extencaps) 10 meq DAILY PO 08/29/19 09:00 08/30/19 08:55 DC Potassium Chloride (Micro-K Extencaps) 20 meq BIDWM PO 08/30/19 08:00 08/31/19 10:41 DC 08/31/19 10:05 Potassium Chloride (Micro-K Extencaps) 40 meq BIDWM PO 08/31/19 18:00 09/02/19 09:52 DC 09/02/19 08:53 Pregabalin (Lyrica) 75 mg BID PO 08/29/19 21:00 09/02/19 08:53 Sodium Chloride 1,000 ml @ 100 mls/hr Q10H IV 09/02/19 12:30 09/02/19 12:24 Sodium Chloride ([place] Nasal [place]) 2 spray Q2HP PRN NA NASAL DRYNESS 08/31/19 12:45 Sodium Chloride (Saline Lock Flush) 10 ml ASDIRECTED PRN IV SEE LABEL COMMENTS 08/30/19 18:00 09/01/19 08:56 Sodium Chloride (Saline Lock Flush) 10 ml PICC IV 08/30/19 18:00 09/02/19 05:22 Vancomycin HCl 1000 mg/IV Miscellaneous Supplies 1 each/ Dextrose 270 ml @ 270 mls/hr Q12H IV 08/30/19 09:00 08/31/19 10:43 DC 08/31/19 10:03 Vitamin D (Vitamin D) 2,000 units DAILY PO 08/29/19 09:00 09/02/19 08:51 Allergies Coded Allergies: Iodinated Contrast Media (Verified Allergy, Severe, CONVULSIONS, 08/29/19) latex (Verified Allergy, Severe, SKIN IRRITATION, DIFFICULTY BREATHING, 08/29/19) naproxen (Verified Allergy, Severe, HIVES/ANAPHYLAXIS, 08/29/19) Penicillins (Verified Allergy, Intermediate, HIVES AND FEVER, 08/29/19) SEAFOOD (Verified Allergy, Unknown, 08/29/19) TAPE (Verified Allergy, Unknown, 08/29/19) bee venom protein (honey bee) (Verified Allergy, Unknown, 08/29/19) Neida Boyle MD Sep 02, 2019 14:59
[2019-09-02] MEDS ORDERED: NS 500 ML IV ONE (15:00)
--- NOTE | 2019-09-02 17:08 | CCN ---
DATE: 09/02/2019 The patient was seen and examined this morning during bedside rounds. Overnight the patient was noted to have an episode of hypotension and did require IV fluid bolus with normal saline. She stated she was asymptomatic at that time and reports at baseline she usually has systolic blood pressures in the low 90s. The patient reports her breathing has continued to improve. Has not had any significant chest pain. Had no coughing or wheezing. She was able to ambulate around the unit today on room air and stated she desaturated to about 88% and did have 1 liter nasal cannula supplementation applied. The patient also has noted significant improvement in her lower extremity edema. PHYSICAL EXAMINATION: Temperature 97.2, pulse 97, respirations 16, blood pressure 95/56, oxygen saturation 91% on room air. Ins 460, out 2.3 liters, net negative 1.8 liters. General: Patient is sitting in bed, is awake and alert and speaking in sentences, does not appear to be acute respiratory distress. HEENT: Normocephalic, atraumatic. Pupils react to light bilaterally. Neck is supple. Trachea is midline. There is no palpable cervical adenopathy. Cardiovascular: Regular rate and rhythm. Normal S1, S2. Unable to appreciate any murmurs. There is a midsternal surgical incision with a dressing in place. Pulmonary: There is improved breath sounds, slightly diminished at the bases with few crackles noted. No wheezing or rhonchi. Abdomen is soft, nontender, nondistended. No palpable mass. Extremities: There is no lower extremity edema in the bilateral lower extremities today. LABS: WBC 12.3, hemoglobin is 13.5, platelets are 441. Chemistries: Sodium is 135, potassium 4.1, chloride is 98, bicarbonate is 33, BUN 12, creatinine 0.66, glucose 103. AST, ALT have trended down and are normal. Pleural fluid cultures are negative. Cytology showed no evidence malignancy with acute on chronic pericarditis. IMAGING: Chest x-ray this morning shows right-sided chest tube has been removed. There are small bilateral pleural effusions noted again with mild visceral thickening. There is a right-sided peripherally inserted central catheter (PICC) line in place. ASSESSMENT AND PLAN: Ms. Gallagher is a 59-year-old female with a past medical history of hypothyroidism secondary to ablation for hyperthyroidism, fibromyalgia, gastroesophageal reflux disease (GERD) and a previous history of small bowel obstruction who presented with complaints worsening shortness breath and chest pain. The patient was found have acute hypoxemic respiratory failure on admission as well as evidence of pericardial tamponade on echocardiogram. Her initial CT of the chest had also shown bilateral pleural effusions and lower lobe consolidation/atelectasis as well as some patchy alveolar infiltrates in the upper lobes and in the right middle lobe. Acute hypoxemic respiratory failure secondary to pulmonary edema with bilateral pleural effusions as well as some component of atelectasis in the lower lobes bilaterally. There is also possible infectious etiology given in the patchy alveolar opacities more in the upper lobes. Given her symptoms, suspect viral pericarditis. Bacterial pericarditis and pneumonia is still possible, however, her pericardial fluid cultures have been negative. - The patient was initially on broad-spectrum antibiotics for concern of possible hospital-acquired pneumonia. Would de-escalate her to oral antibiotics to complete a 7-day total course for antibiotics. - The patient's oxygenation has been improving with diuresis. Yesterday, she did have some hypotension likely secondary to her aggressive diuresis and was given IV fluid bolus. Will discontinue IV Lasix today and will give her low dose oral Lasix as she is still having some evidence of pleural effusions on imaging. Her lower extremity edema however has significantly improved. - Will continue to encourage the patient to use incentive spirometer and out of bed to chair as some of her hypoxia is also likely due to atelectasis. - The patient does not require oxygen supplementation at rest and with exertion only minimally desaturated to 88%. Will continue to monitor, but suspect she can likely be discharged without oxygen supplementation. - The patient did have rheumatoid factor and BRAD which was negative. Her cytology also came back now today negative for malignant process. She does need a repeat echocardiogram in a week's time to evaluate if there is reaccumulation of her pericardial fluid. The patient had new onset atrial fibrillation likely in setting of her acute pericarditis as well as her pericardial window procedure. Given her hypotension, her metoprolol was discontinued and her digoxin was also discontinued as she has been in sinus rhythm. Can consider followup with cardiology as an outpatient for further evaluation to see if she does have recurrent paroxysmal atrial fibrillation or if it was just due to this one time acute issue, which is most likely. The patient is a current active smoker. No previous history of chronic obstructive pulmonary disease (COPD). Can continue with nebulized bronchodilators as needed. Deep venous thrombosis (DVT) prophylax, Lovenox. Proton pump inhibitor (PPI) for gastrointestinal (GI) prophylaxis. CODE STATUS: FULL CODE. Total critical care time spent, not including any procedures, approximately 30 minutes. Please do not hesitate to call if any further questions or concerns. MTDD
[2019-09-02] MEDS: LevoFLOXacin 750 MG TABLET PO SCH (18:32)
[2019-09-02] MEDS: **NOTE PATIENT COMMENT** MISC XX SCH (20:02)
[2019-09-03] VITALS (9 sets, daily range): BP systolic 93–102; BP diastolic 54–60; O2SAT 91–94
[2019-09-03] MEDS: ACETAMINOPHEN TAB 650MG DOSE (2X325MG) PO PRN (00:27)
[2019-09-03] MEDS: LEVALBUTEROL 1.25 MG/0.5 ML CONCENTRATE NEB NEB SCH ×3 (00:30→13:17)
[2019-09-03] MEDS: SODIUM CHLORIDE 0.9% INJ 10 ML SYR IV SCH (04:14)
[2019-09-03 04:45] LABS: BASO # 0.1 10^3/uL (0.0-0.2); BASO % 0.5 % (0.0-1.0); EOS # 0.4 10^3/uL (0.0-0.5); EOS % 3.6 % (0.0-3.0); HEMATOCRIT 33.6 % (36.0-47.0); LYMPH # 3.2 10^3/uL (1.5-5.0); LYMPH % 29.9 % (24.0-44.0); MEAN CORPUSCULAR HEMOGLOBIN 29.9 pg (27.0-33.0); MEAN CORPUSCULAR HGB CONC 32.4 g/dl (32.0-36.5); MEAN CORPUSCULAR VOLUME 92.1 fl (80.0-96.0); MONO # 0.9 10^3/uL (0.0-0.8); NEUTROPHILS # 6.1 10^3/uL (1.5-8.5); NEUTROPHILS % 56.8 % (36.0-66.0); PLATELET COUNT, AUTOMATED 363 10^3/uL (150-450); RED BLOOD COUNT 3.65 10^6/uL (4.00-5.40); WHITE BLOOD COUNT 10.7 10^3/uL (4.0-10.0)
[2019-09-03 04:59] LABS: HEMOGLOBIN 10.9 g/dl (12.0-15.5)
[2019-09-03 05:13] LABS: ALBUMIN 1.8 GM/DL (3.2-5.2); ALT/SGPT 48 U/L (12-78); BILIRUBIN,TOTAL 0.1 MG/DL (0.2-1.0); BLOOD UREA NITROGEN 8 MG/DL (7-18); CALCIUM LEVEL 7.2 MG/DL (8.8-10.2); CARBON DIOXIDE LEVEL 28 MEQ/L (21-32); CHLORIDE LEVEL 112 MEQ/L (98-107); CREATININE FOR GFR 0.41 MG/DL (0.55-1.30); GLOMERULAR FILTRATION RATE > 60.0 (>45); GLUCOSE, FASTING 103 MG/DL (70-100); POTASSIUM SERUM 3.5 MEQ/L (3.5-5.1); SODIUM LEVEL 145 MEQ/L (136-145); TOTAL PROTEIN 5.1 GM/DL (6.4-8.2)
[2019-09-03] MEDS: LEVOTHYROXINE 112MCG TABLET (0.112MG) PO SCH (05:41)
--- NOTE | 2019-09-03 08:13 | REP ---
Chest x-ray: Two views. History: Pericardial and pleural effusion. Comparison study: September 02, 2019. Findings: There are small bilateral pleural effusions blunting the pleural angles again noted essentially unchanged. Right-sided PICC line is seen. No infiltrate is seen. Heart is not felt to be enlarged. There is old post-traumatic deformity of the distal clavicle on the right. There are surgical clips in the upper abdomen. Impression: Small bilateral pleural effusions persist. Electronically Signed by Parth Miles MD 09/03/2019 08:04 A
[2019-09-03] MEDS: NS 1,000 ML IV SCH (08:43)
[2019-09-03] MEDS: DOCUSATE SODIUM 100 MG CAP PO SCH (09:00)
[2019-09-03] MEDS: MOM 30ML SUSPENSION UDC PO SCH (09:00)
[2019-09-03] MEDS: VITAMIN D 1,000 INTERNATIONAL UNITS TABLET PO SCH (09:27)
[2019-09-03] MEDS: NICOTINE 14 MG/24 HR TRANSDERMAL TD SCH (09:27)
[2019-09-03] MEDS: ENOXAPARIN 40MG/0.4ML SYRINGE (J1650 PER 10MG) SC SCH (09:27)
[2019-09-03] MEDS: DULoxetine 20 MG CAP (CYMBALTA) PO SCH (09:27)
[2019-09-03] MEDS: PREGABALIN 75 MG CAP(LYRICA) PO SCH (09:27)
[2019-09-03] MEDS: PANTOPRAZOLE 40MG TAB (PROTONIX) PO SCH (09:27)
[2019-09-03] MEDS: COLCHICINE 0.6 MG TAB PO SCH (09:27)
[2019-09-03] MEDS ORDERED: HYDR-3715 PO (11:17)
[2019-09-03] MEDS ORDERED: DOCU100C16 PO (11:17)
[2019-09-03] MEDS ORDERED: COLC1TAB13 PO (11:17)
[2019-09-03] MEDS ORDERED: LEVA750T7 PO (11:17)
[2019-09-03] MEDS ORDERED: PANT40TA3 PO (11:17)
--- NOTE | 2019-09-03 14:52 | DS.PDOC ---
Discharge Summary General Date of Admission Aug 29, 2019 at 10:41 Date of Discharge 09/03/19 Discharge Summary PROCEDURES PERFORMED DURING STAY: None. ADMITTING DIAGNOSES: 1. Pericardial effusion. DISCHARGE DIAGNOSES: 1. Pericardial effusion, fibromyalgia, history of small bowel obstruction, Graves' disease, GERD, hypothyroidism, connective tissue disorder, Atenolol disease. COMPLICATIONS/CHIEF COMPLAINT: Hypoxia Room 3203. HISTORY OF PRESENT ILLNESS: Patient is a 59-year-old female past history of fibromyalgia, abdominal adhesions with history of small bowel obstruction, history of Graves' disease status post radiation, GERD, hypothyroidism, connective tissue disease, carpal tunnel disease who presented to [facility] ICU after being transferred from [facility] for further treatment of pericardial effusion. As per the patient, prior to being admitted to the hospital she was just transferred from, she states her s all and so he 65. Ymtoms started one week 08/20/19 with chest pain in the AM, woke up from sleep. Chest pain was located on the left side/center of chest, squeezing, constant, 10/10 pain. Took ASA, tums but did not improve. Associated symptoms at that time were shortness of breath, nausea. Patient went to the ER at that time, trops were neg, ECG was wnl. CT at that time was done which was unremarkable and she was sent home from the ER only with levaquin for sinus infection with bronchitis. She said she felt better for three days but then developed increased weakness, fever of 101.3 at home. She called ER again and they prescribed azithromycin and albuterol inhaler. She stated that following Friday 08/25 she felt worse with fevers, weakness, nausea and went to the ER again. She was admitted for bilateral pneumonia on new CT scan. CT chest was repeated on 08/28/19 and found new pericardial effusion. Patient states that her shortness of breath has improved since her admission at [place]. Weakness has improved. She is no longer nauseous, has no chest pain. She also complains of diarrhea of loose stools, small amount, nonbloody, 3x/day, started on 08/28/19. She feels it had started after her antibiotics were started her prior hospital stay. Denies sick contacts that she knows of, no recent travel, palpitations, coughing. Today she was sent to our ICU due to pericardial effusion, continued fevers (102.2). In the ICU patient was 90% on 15 L NRB, she was AAOx3. Labs were reviewed from transfer facility but needed to be repeated. Repeat CT chest without contrast showed b/l consolidations, moderate b/l pleural effusions, moderate pericardial effusion measuring 19 mm width. Thoracic surgery was consulted and patient went for pericardial window where 150 cc pericardial fluid was drained, opaque in color. Path from pericardium was sent, pericardial fluid sent for cx. Pleural tube placed. On window, her heart was adherent to pericardium. Thoracic surgery was concerned for viral pericarditis as cause. She was started on colchicine and currently post-operative procedure. Extubation is being attempted. . HOSPITAL COURSE: ASSESSMENT: 59-year-old female admitted for acute hypoxic respiratory failure secondary to pericardial effusion post-op day 4 pericardial window and tube pericardiostomy. Hypotension likely 2/2 to overdiuresis. Given 500 cc bolus now and started on IVFs this afternoon, as pressures remain low at 88/50. Continue to monitor closely on telemetry, I&O. Acute on chronic hypoxic respiratory failure currently 2/2 to pericarditis (likely viral; however, awaiting pathology), CHF with bilateral pleural effusions, pneumonia (HCAP vs. CAP). 94% on 1-2L, 87% when taken off O2 or walked. Will need walking test with respiratory prior to discharge, in the event that she is hypoxic with activity and may need home O2. Please see below for treatment of individual issues. Pericardial effusion with pericardial tamponade s/p pericardial window. Per thoracic surgery, likely viral cause. BRAD neg, RA neg. Echo above. Pathology: Acute and chronic pericarditis with fat necrosis and reactive mesothelial changes but neg for malignancy. Fungal studies are pending. C/w colchicine. Will need repeat echocardiogram at some point. Thoracic surgery following. Bilateral pneumonia, community vs. HCA. C/w levofloxacin (to complete 6/7 more days then d/c). C/w Acapella Q2 hrs while awake, duoneb ATC, albuterol PRN. Atrial fibrillation. Resolved. Currently NSR and has been since pericardial window. Could have been 2/to sepsis vs. pericarditis. Stopping digoxin and BB, monitor on tele. Diastolic CHF, EF 60-65%. Bilateral pleural effusions on CT, elevated BNP, trop neg. No prior cardiac history. Echo above. Lasix and BB stopped due to hypotension. Hypothyroidism. TSH wnl. C/w home med. Fibromyalgia. Stable. C/w home medications. Tobacco use. Nicotine patch. GERD/hx of Devine's esophagus. PPI. \ pt is clinically stable, maintaining pulse ox more than 88% on room air. On ambulation and will be discharged home cleared by Dr. Prakash as well for discharge.. DISCHARGE MEDICATIONS: Please see below. ALLERGIES: Please see below. PHYSICAL EXAMINATION ON DISCHARGE: VITAL SIGNS: Please see below. GENERAL: Within normal limits HEENT: PERRLA. Eyes are clear muscles intact NECK: Supple CARDIOVASCULAR EXAMINATION: S1, S2, regular RESPIRATORY EXAMINATION: Clear to A&P ABDOMINAL EXAMINATION: Benign EXTREMITIES: No clubbing, cyanosis, edema SKIN: Normal NEUROLOGICAL EXAMINATION: . No focal motor sensory deficit PSYCHIATRIC EXAMINATION: Normal LABORATORY DATA: Please see below. IMAGING: Chest x-ray: Impression: Small bilateral pleural effusions persist. PROGNOSIS: good ACTIVITY: As tolerated. DIET: As tolerated DISCHARGE PLAN: Follow PCP in one week DISPOSITION: 01 Home, Self-Care. DISCHARGE INSTRUCTIONS: 1. As per discharge instructions. ITEMS TO FOLLOWUP ON ON OUTPATIENT: 1. As above. DISCHARGE CONDITION: Stable. TIME SPENT ON DISCHARGE: 38 minutes. Vital Signs/I&Os Vital Signs Date Time Temp Pulse Resp B/P (MAP) Pulse Ox O2 Delivery O2 Flow Rate FiO2 09/03/19 12:00 98.2 86 18 99/57 (71) 94 Room Air 09/03/19 08:00 2.0 I&O- Last 24 Hours up to 6 AM 09/03/19 06:00 Intake Total 2730 ml Output Total 2000 ml Balance 730 ml Laboratory Data Labs 24H Laboratory Tests 2 09/03/19 04:14: Immature Granulocyte % (Auto) 1.2, Neutrophils (%) (Auto) 56.8, Lymphocytes (%) (Auto) 29.9, Monocytes (%) (Auto) 8.0H, Eosinophils (%) (Auto) 3.6H, Basophils (%) (Auto) 0.5, Neutrophils # (Auto) 6.1, Lymphocytes # (Auto) 3.2, Monocytes # (Auto) 0.9H, Eosinophils # (Auto) 0.4, Basophils # (Auto) 0.1, Nucleated Red Blood Cells % (auto) 0.0, Anion Gap 5L, Glomerular Filtration Rate > 60.0, Calcium Level 7.2#L, Total Bilirubin 0.1#L, Aspartate Amino Transf (AST/SGOT) 33, Alanine Aminotransferase (ALT/SGPT) 48, Alkaline Phosphatase 72, Total Protein 5.1L, Albumin 1.8#L, Albumin/Globulin Ratio 0.5L CBC/BMP Laboratory Tests 09/03/19 04:14 Microbiology Microbiology 08/29/19 Blood Culture - Preliminary, Resulted No Growth after 72 hours. All specime... 08/29/19 Blood Culture - Preliminary, Resulted No Growth after 72 hours. All specime... 08/29/19 Acid Fast Stain, Received Pending 08/29/19 Mycobacterial Culture, Received Pending 08/29/19 Fungal Smear, Received Pending 08/29/19 Fungal Culture, Received Pending 08/29/19 Acid Fast Stain, Received Pending 08/29/19 Mycobacterial Culture, Received Pending 08/29/19 Fungal Smear, Received Pending 08/29/19 Fungal Culture, Received Pending 08/29/19 Gram Stain - Final, Complete 08/29/19 Body Fluid Culture - Final, Complete 08/29/19 Anaerobic Culture - Final, Complete 08/29/19 Gram Stain - Final, Complete 08/29/19 Body Fluid Culture - Final, Complete 08/29/19 Anaerobic Culture - Final, Complete Discharge Medications Scheduled Cholecalciferol (Vitamin D3) (Vitamin D3) 1,000 Unit Tablet, 2,000 UNITS PO DAILY, (Reported) Colchicine (Colchicine) 0.6 Mg Tablet, 0.6 MG PO DAILY Docusate Sodium (Docusate Sodium) 100 Mg Capsule, 100 MG PO BID Duloxetine Hcl (Duloxetine HCl) 20 Mg Capsule.dr, 20 MG PO BID, (Reported) Esomeprazole Magnesium (Esomeprazole Magnesium Dr) 40 Mg Capsule.dr, 40 MG PO DAILY, (Reported) Estrogens, Conjugated (Premarin) 0.9 Mg Tablet, 0.9 MG PO DAILY, (Reported) Levofloxacin (Levaquin) 750 Mg Tablet, 750 MG PO DAILY@1800 Levothyroxine Sodium (Levothyroxine Sodium) 112 Mcg Tablet, 112 MCG PO DAILY, (Reported) Multivitamins (Thera M Plus Tablet) 1 Each Tablet, 1 TAB PO DAILY, (Reported) Pantoprazole Sodium (Pantoprazole Sodium) 40 Mg Tablet.dr, 40 MG PO DAILY Potassium Chloride (Potassium Chloride) 10 Meq Tablet.er, 10 MEQ PO DAILY, (Reported) Pregabalin (Pregabalin) 75 Mg Capsule, 75 MG PO BID, (Reported) Vitamin B Complex (Vitamin B Complex) 1 Each Tablet, 1 TAB PO DAILY, (Reported) Scheduled PRN Acetaminophen (Acetaminophen) 325 Mg Tablet, 975 MG PO QID PRN for PAIN / FEVER, (Reported) Hydrocodone/Acetaminophen (Hydrocodone-Acetamin 5-325 mg) 1 Each Tablet, 1 TAB PO Q3H PRN for MILD PAIN (PS 1-4) Ipratropium/Albuterol Sulfate (Iprat-Albut 0.5-3(2.5) mg/3 ml) 3 Ml Ampul.neb, 3 ML INH QID PRN for SHORTNESS OF BREATH, (Reported) Lidocaine (Lidocaine) 5% Adh..patch, 3 PATCH TOP DAILY PRN for PAIN, (Reported) RIGHT HIP, FRONT RIGHT LEG Nitroglycerin (Nitroglycerin) 0.4 Mg Tab.subl, 0.4 MG SL NITRO PRN for CHEST PAIN, (Reported) Allergies Coded Allergies: Iodinated Contrast Media (Verified Allergy, Severe, CONVULSIONS, 08/29/19) latex (Verified Allergy, Severe, SKIN IRRITATION, DIFFICULTY BREATHING, 08/29/19) naproxen (Verified Allergy, Severe, HIVES/ANAPHYLAXIS, 08/29/19) Penicillins (Verified Allergy, Intermediate, HIVES AND FEVER, 08/29/19) SEAFOOD (Verified Allergy, Unknown, 08/29/19) TAPE (Verified Allergy, Unknown, 08/29/19) bee venom protein (honey bee) (Verified Allergy, Unknown, 08/29/19) EVETTE THORNE MD Sep 03, 2019 14:52
== END 2019-09-03 14:33 | disposition home or self-care (01) | DRG 180 ==
LOC: M ICU 10:41 → M PCU 08-31 16:50
PROVIDERS: ADMIT Internal Medicine Nephrology; ATTEND Internal Medicine
PROC: 0W9D0ZX Drainage of Pericardial Cavity, Open Approach, Diagnostic (ICD-10-PCS; principal; 2019-08-29 14:18)
DX: I30.1 Infective pericarditis (principal); J96.01 Acute respiratory failure with hypoxia; I31.4 Cardiac tamponade; J18.9 Pneumonia, unspecified organism; I95.9 Hypotension, unspecified; I50.32 Chronic diastolic (congestive) heart failure; M79.7 Fibromyalgia; K21.9 Gastro-esophageal reflux disease without esophagitis; E03.9 Hypothyroidism, unspecified; E89.0 Postprocedural hypothyroidism; I48.91 Unspecified atrial fibrillation; F17.200 Nicotine dependence, unspecified, uncomplicated; Z79.899 Other long term (current) drug therapy; Z88.0 Allergy status to penicillin; Z91.040 Latex allergy status; Z88.8 Allergy status to other drugs, medicaments and biological substances; Z91.013 Allergy to seafood; Z91.041 Radiographic dye allergy status; Z91.030 Bee allergy status; K22.70 Barrett's esophagus without dysplasia; F17.210 Nicotine dependence, cigarettes, uncomplicated; E87.6 Hypokalemia

== ENCOUNTER → 2019-09-12 | Outpatient (CLI) | payer OTHER ==
[~2019-09-12] MED LIST changes: +ACET1TAB55 PO; +ALBU8.5H INH; +COLC1TAB13 PO; +DOCU100C16 PO; +DULO1CAP4 PO; +EQL50TAB2 PO; +ESOM40CA35 PO; +HYDR-3715 PO; +IPRA0.00 INH; +LEVA750T7 PO; +LEVO112T2 PO; +LIDO1PAD TOP; +MERO1VIA3 IV; +METH125VL INJ; +NITR0.4S14 SL; -OMEPRAZOLE 20 MG CAP PO SCH; +PANT40TA3 PO; +POTA1TAB23 PO; -POTASSIUM CHLORIDE 10 MEQ SR TABLET PO SCH; +PREG75CA2 PO; +PREM0.9T PO; +VITAD1000T PO; +VITMTA PO
--- NOTE | 2019-09-12 10:04 | REPPI ---
Clinical: Pericardial effusion. Technique: PA and lateral. Comparison: 09/03/2019. Findings: The mediastinum and cardiac silhouette are relatively normal / stable. Bibasilar atelectasis and small pleural effusions are again noted and similar to prior examination. No pneumothorax. Skeletal structures intact. Impression: The mild bibasilar atelectasis and small pleural effusions are similar to 09/03/2019. Electronically Signed by Joni Langley MD 09/12/2019 09:56 A
== END ==
LOC: M PLAIMG 09:42
PROVIDERS: ATTEND Thoracic Surgery (Cardiothoracic Vascular Surgery)
DX: I31.3 Pericardial effusion (noninflammatory) (principal)

== ENCOUNTER → 2020-05-04 | Outpatient (REF) ==
[~2020-05-04] MED LIST changes: +COLC0.6T47 PO; -COLC1TAB13 PO; +D31000TA2 PO; +PANT40TA29 PO; -PANT40TA3 PO; -VITAD1000T PO
--- NOTE | 2020-05-05 14:54 | SLEEPHOME ---
DATE: 05/04/2020 DIAGNOSTIC HOME SLEEP STUDY ORDERED BY: Isaías Murillo M.D, [facility]. Diagnostic home sleep testing was performed due to concern for the obstructive sleep apnea syndrome. For testing, a nocturnal T3 respiratory monitoring device was used. Continuous record was made of pulse, oxygen saturation, air flow, chest and abdominal strain, and body position. 5 hours and 59 minutes of data were reviewed. There were 5 hours and 57 minutes marked as time in bed. During the interval marked time in bed, there were 50 respiratory events identified of 10 seconds in duration or greater for a respiratory event index 8.4 per hour. The events were primarily obstructive, 11 mixed and central apneas were also noted. Baseline pulse rate was 75 beats per minute. Pulse rate ranged from 61 to 104. Baseline saturation was 89%. Saturations fell as low as 83%. Testing was performed in both the supine and non-supine positions. IMPRESSION: Abnormal home sleep testing, with repetitive respiratory events and oxygen desaturations to 83% with a respiratory event index of 8.4 per hour, is consistent with the obstructive sleep apnea syndrome. RECOMMENDATION: Given the significant oxygen desaturations, I would recommend referring the patient for a formal sleep evaluation in consideration of pressure therapy titration.
== END ==
LOC: M SLEEP HO 10:00
DX: J44.9 Chronic obstructive pulmonary disease, unspecified (principal)

== ENCOUNTER → 2021-08-19 | Outpatient (CLI) | payer OTHER ==
[~2021-08-19] MED LIST changes: -D31000TA2 PO; +VITA100093 PO
[2021-08-19 15:23] LABS: BASO # 0.1 10^3/uL (0.0-0.2); EOS # 0.1 10^3/uL (0.0-0.5); EOS % 0.6 % (0.0-3.0); HEMATOCRIT 43.9 % (36.0-47.0); HEMOGLOBIN 14.8 g/dl (12.0-15.5); LYMPH # 3.6 10^3/uL (1.5-5.0); LYMPH % 40.2 % (24.0-44.0); MEAN CORPUSCULAR HEMOGLOBIN 31.3 pg (27.0-33.0); MEAN CORPUSCULAR HGB CONC 33.7 g/dl (32.0-36.5); MEAN CORPUSCULAR VOLUME 92.8 fl (80.0-96.0); MONO # 0.5 10^3/uL (0.0-0.8); MONO % 5.3 % (2.0-8.0); NEUTROPHILS # 4.7 10^3/uL (1.5-8.5); NEUTROPHILS % 52.6 % (36.0-66.0); PLATELET COUNT, AUTOMATED 288 10^3/uL (150-450); RED BLOOD COUNT 4.73 10^6/uL (4.00-5.40); WHITE BLOOD COUNT 8.9 10^3/uL (4.0-10.0)
[2021-08-19 15:47] LABS: ALT/SGPT 25 U/L (12-78); BILIRUBIN,TOTAL 0.2 MG/DL (0.2-1.0); BLOOD UREA NITROGEN 8 MG/DL (7-18); C REACTIVE PROTEIN QUANTITATIV 1.29 MG/DL (0.00-0.30); CALCIUM LEVEL 9.9 MG/DL (8.8-10.2); CARBON DIOXIDE LEVEL 27 MEQ/L (21-32); CHLORIDE LEVEL 105 MEQ/L (98-107); CREATININE FOR GFR 0.65 MG/DL (0.55-1.30); GLOMERULAR FILTRATION RATE > 60.0 (>45); GLUCOSE, FASTING 96 MG/DL (70-100); POTASSIUM SERUM 4.4 MEQ/L (3.5-5.1); RHEUMATOID FACTOR QUANT < 10.0 IU/ML (<15.0); SODIUM LEVEL 139 MEQ/L (136-145); TOTAL PROTEIN 7.6 GM/DL (6.4-8.2)
[2021-08-19 15:51] LABS: ERYTHROCYTE SEDIMENTATION RATE 10 mm/hr (0-30)
[2021-08-19 16:36] LABS: HIV 1&2 SCREEN CENTAUR NEGATIVE (NEGATIVE)
[2021-08-24 01:06] LABS: ANA (HEP2) Negative (.); CYCLIC CITRULLINATED PEPTIDE 5 units (0-19); SSA SJOGRENS A <0.2 AI (0.0-0.9); SSB SJOGRENS B <0.2 AI (0.0-0.9)
== END ==
LOC: M PLALAB 13:18
PROVIDERS: ATTEND Internal Medicine Infectious Disease
DX: R50.9 Fever, unspecified (principal); I30.0 Acute nonspecific idiopathic pericarditis; H04.123 Dry eye syndrome of bilateral lacrimal glands

== ENCOUNTER → 2021-09-21 | Outpatient (CLI) | payer OTHER ==
[~2021-09-21] MED LIST changes: +ISOVUE-300 61% 50ML VIAL As Ordered ONE; +LIDOCAINE 1% MDV 20ML VIAL As Ordered ONE; +methylPREDNISolone SUSP 40MG/ML 1ML VIAL (DEPO MEDROL) As Ordered ONE
== END ==
LOC: M RADPRO 10:37
DX: M16.11 Unilateral primary osteoarthritis, right hip (principal)
CPT/HCPCS: 20610; 76000; J1030; Q9967

== ENCOUNTER → 2022-07-15 | Outpatient (CLI) | payer OTHER ==
[~2022-07-15] MED LIST changes: -ISOVUE-300 61% 50ML VIAL As Ordered ONE; -LIDOCAINE 1% MDV 20ML VIAL As Ordered ONE; -methylPREDNISolone SUSP 40MG/ML 1ML VIAL (DEPO MEDROL) As Ordered ONE
== END ==
LOC: M WHC 11:29
PROVIDERS: ATTEND Physician Assistant
DX: Z12.31 Encounter for screening mammogram for malignant neoplasm of breast (principal)

== ENCOUNTER 2022-10-31 09:53 | Day surgery (SDC) | payer OTHER ==
[~2022-10-31] VITALS: Ht 160 cm; Wt 55.8 kg
[~2022-10-31 09:53] MED LIST changes: +CYCL5TAB PO; +NEXI20CA PO; +NS 1,000 ML IV ONE; +OXYC1TAB23 PO; +VITA500C24 PO; +[UNRECOGNIZED DRUG - CODE] PO
[2022-10-31] MEDS ORDERED: GLYCOPYRROLATE INJ 0.2 MG/ML 2 ML VIAL As Ordered ONE (11:14)
[2022-10-31] MEDS ORDERED: propofoL 200 MG/20 ML VIAL As Ordered ONE (11:14)
[2022-10-31] MEDS ORDERED: LIDOCAINE 2% 100MG/5ML SDV (FOR ANES.) As Ordered ONE (11:14)
[2022-10-31 12:04] VITALS: TEMP 97.7
[2022-10-31 12:20] VITALS: BP 121/58; O2SAT 97
== END 2022-10-31 12:27 | disposition home or self-care (01) ==
LOC: M SDC 09:53
PROVIDERS: ATTEND Internal Medicine Gastroenterology
DX: Z12.11 Encounter for screening for malignant neoplasm of colon (principal); Z86.010 Personal history of colon polyps; D12.6 Benign neoplasm of colon, unspecified; K64.4 Residual hemorrhoidal skin tags; Q43.8 Other specified congenital malformations of intestine; K31.89 Other diseases of stomach and duodenum; K29.70 Gastritis, unspecified, without bleeding; Z79.1 Long term (current) use of non-steroidal anti-inflammatories (NSAID); Z79.890 Hormone replacement therapy; Z79.899 Other long term (current) drug therapy; Z88.5 Allergy status to narcotic agent; Z91.040 Latex allergy status; Z91.030 Bee allergy status; Z91.048 Other nonmedicinal substance allergy status

== ENCOUNTER → 2023-12-29 | Outpatient (CLI) | payer OTHER ==
[~2023-12-29] MED LIST changes: -NS 1,000 ML IV ONE; -PREG75CA2 PO; +PREG75CA3 PO
== END ==
LOC: M WHC 12:56
PROVIDERS: ATTEND Student in an Organized Health Care Education/Training Program
DX: Z12.31 Encounter for screening mammogram for malignant neoplasm of breast (principal); R92.333 Mammographic heterogeneous density, bilateral breasts

== ENCOUNTER → 2024-12-30 | Outpatient (CLI) | payer MEDICARE, OTHER ==
[~2024-12-30] MED LIST changes: -COLC0.6T47 PO; +COLC0.6T53 PO; -CYCL5TAB PO; +CYCL5TAB4 PO; -EQL50TAB2 PO; +VITA1TAB82 PO
== END ==
LOC: M WHC 11:56
PROVIDERS: ATTEND Student in an Organized Health Care Education/Training Program
DX: Z12.31 Encounter for screening mammogram for malignant neoplasm of breast (principal); R92.333 Mammographic heterogeneous density, bilateral breasts